=== PATIENT | male | born 1990 | race Caucasian/White ===

== ENCOUNTER 2018-05-09 22:53 | Emergency (ER) | payer SELFPAY ==
--- NOTE | 2018-05-10 01:06 | ED ---
General Adult HPI - General Chief complaint: Skin/Abscess/Foreign Body Stated complaint: poss staph infection Source: patient Mode of arrival: ambulatory Limitations: no limitations - History of Present Illness Initial comments: Dictation was produced using [employer] dictation software. please excuse any grammatical, word or spelling errors. Chief Complaint: 28-year-old male presents with rash to his finger and forearm. History of Present Illness: Before meals was sent here from work for rash. Patient was told that his rash might represent staph infection. He was sent home from work told that he can come back to work until he has a work note. Patient states that his daughter was suffering from a staph infection. He has been treating and applying the medications to his daughter while swelling gloves. Patient denies any similar symptoms. Did have a small bullous rash to his forearm. He works as a fitter/welder and states that he gets these types of lesions commonly after he gets burn frequently. The ROS documented in this emergency department record has been reviewed and confirmed by me. Those systems with pertinent positive or negative responses have been documented in the HPI. All other systems are other negative and/or noncontributory. - Related Data Previous Rx's Medication Instructions Recorded Htotizyp-Opdlvrgams-Fbvs Oint 1 applic TOPICAL DAILY #250 05/10/18 [Triple Antibiotic Ointment] oint...g. Allergies Allergy/AdvReac Type Severity Reaction Status Date / Time codeine Allergy Anaphylaxis Verified 05/09/18 23:51 Review of Systems ROS Statement: Those systems with pertinent positive or pertinent negative responses have been documented in the HPI. ROS Other: All systems not noted in ROS Statement are negative. Past Medical History Past Medical History: No Reported History Additional Past Medical History / Comment(s): back pain, depression History of Any Multi-Drug Resistant Organisms: None Reported Past Surgical History: Tonsillectomy Past Psychological History: Anxiety, Depression Smoking Status: Current every day smoker Past Alcohol Use History: None Reported Past Drug Use History: Marijuana General Exam - General Exam Comments Initial Comments: PHYSICAL EXAM: General Impression: Alert and oriented x3, not in acute distress HEENT: Normocephalic atraumatic, extra-ocular movements intact, pupils equal and reactive to light bilaterally, mucous membranes moist. Cardiovascular: Heart regular rate and rhythm, S1&S2 audible, no murmurs, rubs or gallops Chest: Lungs clear to auscultation bilaterally, no rhonchi, no wheeze, no rales Abdomen: Bowel sounds present, abdomen soft, non-tender, non-distended, no organomegaly Musculoskeletal: Pulses present and equal in all extremities, no peripheral edema Motor: Power 5/5 bilaterally, no focal deficits noted Neurological: CN II-XII grossly intact, no focal motor or sensory deficits noted Skin: Small punctate 1 mm blister to the distal right forearm any surrounding erythema. Psych: Normal affect and mood Limitations: no limitations Course Vital Signs 05/09/18 23:50 Temperature 98.5 F Pulse Rate 85 Respiratory 18 Rate Blood Pressure 120/74 O2 Sat by Pulse 98 Oximetry Medical Decision Making - Medical Decision Making ED course: 12-vvr-rhlf-old male presents with request for work note and rash evaluation. Signs upon arrival are within acceptable limits. Patient's clinical presentation consistent with staph or any other bacterial type of rash. Patient given a work note to clear him back for work. He is given prescription for triple ointment antibiotic to place should he develop any redness to his skin. He is advised follow up with primary care physician upon discharge. Disposition Clinical Impression: Rash Disposition: HOME SELF-CARE Condition: Good Instructions: Acute Rash (ED) Prescriptions: Tscrepiw-Rckyfcgnwp-Fntw Oint [Triple Antibiotic Ointment] 1 applic TOPICAL DAILY #250 oint...g. Is patient prescribed a controlled substance at d/c from ED?: No Referrals: None,Stated [Primary Care Provider] - 1-2 days Time of Disposition: 01:06
[2018-05-10 01:19] VITALS: BP 126/63; PULSE 82; RESP 16; TEMP 98.3
== END 2018-05-10 01:23 | disposition home or self-care (01) ==
LOC: EC 22:53
DX: R21 Rash and other nonspecific skin eruption (principal); F17.200 Nicotine dependence, unspecified, uncomplicated; Z88.5 Allergy status to narcotic agent
CPT/HCPCS: 99282

== ENCOUNTER 2018-06-07 17:49 | Emergency (ER) | payer OTHER ==
[2018-06-07 19:11] VITALS: RESP 18
[2018-06-07 19:45] LABS: Appearance,Urine Clear (Clear); Bilirubin,Urine Negative (Negative); Blood,Urine Negative (Negative); Color,Urine Light Yellow; Glucose,Urine (UA) Negative (Negative); Ketones,Urine Negative (Negative); Leukocyte Esterase,Urine Negative (Negative); Nitrite,Urine Negative (Negative); Protein,Urine Negative (Negative); Specific Gravity,Urine 1.006 (1.001-1.035); Urobilinogen,Urine <2.0 mg/dL (<2.0)
[2018-06-07 19:48] LABS: Basophils # (A) 0.1 k/uL (0-0.2); Basophils % (A) 1 %; Eosinophils # (A) 0.3 k/uL (0-0.7); Eosinophils % (A) 3 %; HCT 42.8 % (39.0-53.0); HGB 14.5 gm/dL (13.0-17.5); Lymphocytes # (A) 2.6 k/uL (1.0-4.8); Lymphocytes % (A) 31 %; MCH 29.4 pg (25.0-35.0); MCHC 33.9 g/dL (31.0-37.0); MCV 86.7 fL (80.0-100.0); Mean Platelet Volume 7.1; Monocytes # (A) 0.5 k/uL (0-1.0); Monocytes % (A) 5 %; Neutrophils # (A) 4.9 k/uL (1.3-7.7); Neutrophils % (A) 58 %; Platelet Count 232 k/uL (150-450); RBC 4.94 m/uL (4.30-5.90); RDW 12.3 % (11.5-15.5); WBC 8.3 k/uL (3.8-10.6)
[2018-06-07 19:53] LABS: ALT 33 U/L (21-72); AST 26 U/L (17-59); Albumin 4.7 g/dL (3.5-5.0); Alkaline Phosphatase 67 U/L (38-126); Amylase 36 U/L (30-110); Anion Gap 9 mmol/L; Blood Urea Nitrogen 11 mg/dL (9-20); Calcium 9.7 mg/dL (8.4-10.2); Carbon Dioxide 26 mmol/L (22-30); Chloride 108 mmol/L (98-107); Glucose 88 mg/dL (74-99); Lipase 63 U/L (23-300); Potassium 4.6 mmol/L (3.5-5.1); Sodium 143 mmol/L (137-145); Total Bilirubin 0.6 mg/dL (0.2-1.3); Total Protein 7.2 g/dL (6.3-8.2)
[2018-06-07] MEDS ORDERED: KETOROLAC 30 MG/ML 1 ML VIAL IVP STA (20:08)
--- NOTE | 2018-06-07 20:18 | ED ---
General Adult HPI - General Chief complaint: Abdominal Pain Stated complaint: flank pain Time Seen by Provider: 06/07/18 19:51 Source: patient, RN notes reviewed Mode of arrival: ambulatory Limitations: no limitations - History of Present Illness Initial comments: Patient is a pleasant 28-year-old male presenting to the emergency department with concerns for left flank pain. Symptoms have been occurring for a couple of days. Patient is concerned that he may have gotten dehydrated a day or 2 ago. Patient has not noticed any hematuria. He states the urine has looked somewhat dark. He states there is mild discomfort with urination. Flank discomfort is positional. Discomfort is mostly left CVA region but does extend somewhat towards the abdomen. No fevers. No vomiting. No history of similar symptoms previously. - Related Data Home Medications Medication Instructions Recorded Confirmed Acetaminophen [Tylenol Arthritis] 650 mg PO Q8H PRN 06/07/18 06/07/18 Previous Rx's Medication Instructions Recorded Cyclobenzaprine [Flexeril] 10 mg PO TID PRN #12 tablet 06/07/18 Allergies Allergy/AdvReac Type Severity Reaction Status Date / Time codeine Allergy Anaphylaxis Verified 06/07/18 19:39 Review of Systems ROS Statement: Those systems with pertinent positive or pertinent negative responses have been documented in the HPI. ROS Other: All systems not noted in ROS Statement are negative. Constitutional: Denies: fever Eyes: Denies: eye pain ENT: Denies: ear pain Respiratory: Denies: cough Cardiovascular: Denies: chest pain Endocrine: Denies: fatigue Gastrointestinal: Reports: abdominal pain Genitourinary: Reports: dysuria. Denies: hematuria Musculoskeletal: Reports: back pain (Left flank) Skin: Denies: rash Neurological: Denies: weakness Past Medical History Past Medical History: No Reported History Additional Past Medical History / Comment(s): back pain, depression, History of Any Multi-Drug Resistant Organisms: None Reported Past Surgical History: Tonsillectomy Past Psychological History: Anxiety, Bipolar, Depression Smoking Status: Current every day smoker Past Alcohol Use History: None Reported Past Drug Use History: Marijuana General Exam Limitations: no limitations General appearance: alert, in no apparent distress Head exam: Present: atraumatic Eye exam: Present: normal appearance ENT exam: Present: normal oropharynx Neck exam: Present: normal inspection Respiratory exam: Present: normal lung sounds bilaterally Cardiovascular Exam: Present: regular rate, normal rhythm Expanded Peripheral pulses: 2+: Posterior Tibialis (R), Posterior Tibialis (L), Dorsalis Pedis (R), Dorsalis Pedis (L) GI/Abdominal exam: Present: soft, tenderness (Mild tenderness left flank), normal bowel sounds. Absent: distended, guarding, rebound, rigid, pulsatile mass Extremities exam: Present: normal inspection. Absent: pedal edema, calf tenderness Back exam: Present: CVA tenderness (L) (Mild discomfort left CVA) Neurological exam: Present: alert Psychiatric exam: Present: normal affect, normal mood Skin exam: Present: normal color Course Vital Signs 06/07/18 19:07 Temperature 98.3 F Pulse Rate 98 Respiratory 18 Rate Blood Pressure 120/75 O2 Sat by Pulse 98 Oximetry Medical Decision Making - Medical Decision Making Patient reevaluated and resting comfortably in bed. Patient is updated on results. - Lab Data Result diagrams: 06/07/18 19:35 06/07/18 19:35 Lab Results 06/07/18 06/07/18 06/07/18 Range/Units 19:35 19:35 19:35 WBC 8.3 (3.8-10.6) k/uL RBC 4.94 (4.30-5.90) m/uL Hgb 14.5 (13.0-17.5) gm/dL Hct 42.8 (39.0-53.0) % MCV 86.7 (80.0-100.0) fL MCH 29.4 (25.0-35.0) pg MCHC 33.9 (31.0-37.0) g/dL RDW 12.3 (11.5-15.5) % Plt Count 232 (150-450) k/uL Neutrophils % 58 % Lymphocytes % 31 % Monocytes % 5 % Eosinophils % 3 % Basophils % 1 % Neutrophils # 4.9 (1.3-7.7) k/uL Lymphocytes # 2.6 (1.0-4.8) k/uL Monocytes # 0.5 (0-1.0) k/uL Eosinophils # 0.3 (0-0.7) k/uL Basophils # 0.1 (0-0.2) k/uL Sodium 143 (137-145) mmol/L Potassium 4.6 (3.5-5.1) mmol/L Chloride 108 H (98-107) mmol/L Carbon Dioxide 26 (22-30) mmol/L Anion Gap 9 mmol/L BUN 11 (9-20) mg/dL Creatinine 0.81 (0.66-1.25) mg/dL Est GFR (CKD-EPI)AfAm >90 (>60 ml/min/1.73 sqM) Est GFR (CKD-EPI)NonAf >90 (>60 ml/min/1.73 sqM) Glucose 88 (74-99) mg/dL Calcium 9.7 (8.4-10.2) mg/dL Total Bilirubin 0.6 (0.2-1.3) mg/dL AST 26 (17-59) U/L ALT 33 (21-72) U/L Alkaline Phosphatase 67 (38-126) U/L Total Protein 7.2 (6.3-8.2) g/dL Albumin 4.7 (3.5-5.0) g/dL Amylase 36 (30-110) U/L Lipase 63 (23-300) U/L Urine Color Light Yellow Urine Appearance Clear (Clear) Urine pH 6.0 (5.0-8.0) Ur Specific [place] 1.006 (1.001-1.035) Urine Protein Negative (Negative) Urine Glucose (UA) Negative (Negative) Urine Ketones Negative (Negative) Urine Blood Negative (Negative) Urine Nitrite Negative (Negative) Urine Bilirubin Negative (Negative) Urine Urobilinogen <2.0 (<2.0) mg/dL Ur Leukocyte Esterase Negative (Negative) - Radiology Data Radiology results: report reviewed (Computed tomography scan of the abdomen pelvis shows no acute process.), image reviewed (KUB shows nonacute abdomen) Disposition Clinical Impression: Back pain Disposition: HOME SELF-CARE Condition: Stable Instructions: Flank Pain (ED), Back Pain (ED) Additional Instructions: Teuj-spn-lbbjzyv ibuprofen as needed. Please follow-up with primary care physician in the next day or 2 for recheck. Have primary care physician check urine culture results. Return for fevers, increase in pain, worsening or changing symptoms or other concerns. Prescriptions: Cyclobenzaprine [Flexeril] 10 mg PO TID PRN #12 tablet PRN Reason: Pain Is patient prescribed a controlled substance at d/c from ED?: No Referrals: Дмитрий Moirllo MD [STAFF PHYSICIAN] - 1-2 days Time of Disposition: 22:04
--- NOTE | 2018-06-07 20:57 | CT ---
EXAMINATION TYPE: CT abdomen pelvis wo con DATE OF EXAM: 06/07/2018 COMPARISON: 05/23/2011 HISTORY: Left side flank pain. CT DLP: 361.3 mGycm Automated exposure control for dose reduction was used. TECHNIQUE: Helical acquisition of images was performed from the lung bases through the pelvis. FINDINGS: Lung bases are clear. There is no pleural effusion. Heart size is normal. Liver spleen pancreas gallbladder appear normal. Bile ducts are not dilated. There is no adrenal mass . Kidneys have normal size and contour. There is no hydronephrosis. Bladder distends smoothly. There is no retroperitoneal adenopathy. There are a few abdominal para-aortic lymph nodes that measure up t o 1 cm. There is no ascites. There is no intestinal wall thickening. There are no dilated loops. Bladder dist ends smoothly. There is no evidence of a pelvic mass. Appendix appears normal. The lumbar spine is in tact. Disc spaces are normal. There is no evidence of free air. There is no free fluid. IMPRESSION: NORMAL CT SCAN OF THE ABDOMEN AND PELVIS. NORMAL APPENDIX. NO RENAL STONE OR OBSTRUCTION.
--- NOTE | 2018-06-07 21:26 | XR ---
EXAMINATION TYPE: XR KUB DATE OF EXAM: 06/07/2018 COMPARISON: NONE HISTORY: Flank pain TECHNIQUE: 2 views FINDINGS: Bowel gas pattern is normal. There is no sign of intestinal obstruction or pneumoperitoneum . Fecal pattern is normal. There are no pathologic calcifications over the kidneys. IMPRESSION: Nonacute abdomen.
[2018-06-07 22:21] VITALS: BP 135/62; PULSE 72; TEMP 98
== END 2018-06-07 22:21 | disposition home or self-care (01) ==
LOC: EC 17:49
DX: M54.9 Dorsalgia, unspecified (principal); R10.9 Unspecified abdominal pain; F17.200 Nicotine dependence, unspecified, uncomplicated; Z88.5 Allergy status to narcotic agent
CPT/HCPCS: 36415; 74018; 74176; 80053; 81003; 82150; 83690; 85025; 87086; 96374; 99284

== ENCOUNTER 2018-07-06 19:06 | Emergency (ER) | payer OTHER ==
[2018-07-06 19:26] VITALS: BP 121/75; PULSE 78; RESP 16; TEMP 98.3
[2018-07-06] MEDS ORDERED: PROPARACAINE 0.5% OPHTH DROPS 15 ML BTL LEFT EYE STA (19:36)
--- NOTE | 2018-07-06 19:39 | ED ---
General Adult HPI - General Chief complaint: Eye Problems Stated complaint: poss fb in left eye Time Seen by Provider: 07/06/18 19:31 Source: patient, RN notes reviewed Mode of arrival: ambulatory Limitations: no limitations - History of Present Illness Initial comments: Patient's a 28-year-old male presents to emergency room today with a chief complaint of foreign body sensation to the left eye. Patient does admit that he was outside working in the garage when he feels like something might have fallen into his eye. He states she's had some irritation on the lateral aspect. Patient states unsure of his tetanus status. He denies any other complaints. Patient denies any recent fever, chills, shortness of breath, chest pain, back pain, abdominal pain, nausea or vomiting, numbness or tingling, headaches or visual changes, or any other complaints. - Related Data Previous Rx's Medication Instructions Recorded Tobramycin 0.3% Ophth Soln [Tobrex 1 - 2 drop BOTH EYES QID 7 Days ml 07/06/18 0.3% Ophth Soln] Allergies Allergy/AdvReac Type Severity Reaction Status Date / Time codeine Allergy Rash/Hives Verified 07/06/18 19:37 Review of Systems ROS Statement: Those systems with pertinent positive or pertinent negative responses have been documented in the HPI. ROS Other: All systems not noted in ROS Statement are negative. Past Medical History Past Medical History: No Reported History Additional Past Medical History / Comment(s): back pain, depression, History of Any Multi-Drug Resistant Organisms: None Reported Past Surgical History: Tonsillectomy Past Psychological History: Anxiety, Bipolar, Depression Smoking Status: Current every day smoker Past Alcohol Use History: None Reported Past Drug Use History: Marijuana General Exam - General Exam Comments Initial Comments: General: The patient is awake and alert, in no distress, and does not appear acutely ill. Eye: Pupils are equal, round and reactive to light. Extra-ocular movements are intact. No nystagmus. There is normal conjunctiva bilaterally. No signs of icterus. Ears, nose, mouth and throat: There are moist mucous membranes and no oral lesions. Neck: The neck is supple, there is no tenderness or JVD. Musculoskeletal: Normal ROM, no tenderness. Sensation intact. Neurological: A&O x 3. CN II-XII intact, There are no obvious motor or sensory deficits. Coordination appears grossly intact. Speech is normal. Skin: Skin is warm and dry and no rashes or lesions are noted. Psychiatric: Cooperative, appropriate mood & affect, normal judgment. Limitations: no limitations Course Vital Signs 07/06/18 19:23 Temperature 98.3 F Pulse Rate 78 Respiratory 16 Rate Blood Pressure 121/75 O2 Sat by Pulse 100 Oximetry Medical Decision Making - Medical Decision Making Patient's left eye was stained with fluorescein which did reveal a foreign body at the 10 o'clock position. Her chemistries used to anesthetize the eye which didn't relieve his symptoms. Lids were inverted no other foreign bodies seen. Yared brush used to perform body and small rust ring. Patient tolerated procedure well. Patient will be started on antibiotic drops advised following up over the next 2 days with e learning manager if symptoms have not completely resolved. Tetanus will be updated. Disposition Clinical Impression: Corneal foreign body Disposition: HOME SELF-CARE Condition: Good Instructions: Eye Foreign Body (ED) Additional Instructions: Please use antibiotic drops as prescribed follow-up with e learning manager if symptoms have not completely resolved in 2 days. Please return to emergency room if any symptoms increase or worsen. Prescriptions: Tobramycin 0.3% Ophth Soln [Tobrex 0.3% Ophth Soln] 1 - 2 drop BOTH EYES QID 7 Days ml Is patient prescribed a controlled substance at d/c from ED?: No Referrals: None,Stated [Primary Care Provider] - 1-2 days Rhys Chi MD [STAFF PHYSICIAN] - 1-2 days Time of Disposition: 20:01
[2018-07-06] MEDS ORDERED: DIPH,PERTUS(ACELL)TETVAC-LF 0.5 ML VIAL IM ONE (20:00)
== END 2018-07-06 20:35 | disposition home or self-care (01) ==
LOC: EC 19:06
DX: T15.02XA Foreign body in cornea, left eye, initial encounter (principal); F17.200 Nicotine dependence, unspecified, uncomplicated; Z23 Encounter for immunization; Z88.5 Allergy status to narcotic agent; Y92.015 Private garage of single-family (private) house as the place of occurrence of the external cause; Y93.89 Activity, other specified
CPT/HCPCS: 90471; 90715; 99283

== ENCOUNTER 2018-09-06 16:51 | Emergency (ER) | payer OTHER ==
[2018-09-06 16:57] VITALS: TEMP 97.4
[2018-09-06] MEDS ORDERED: KETOROLAC 60 MG/2 ML VIAL IM STA (17:17)
--- NOTE | 2018-09-06 17:20 | ED ---
General Adult HPI - General Chief complaint: Extremity Injury, Lower Stated complaint: Ankle Injury Time Seen by Provider: 09/06/18 17:08 Source: patient, RN notes reviewed Mode of arrival: ambulatory Limitations: no limitations - History of Present Illness Initial comments: Patient is a 28-year-old male who presents the emergency department with complaints of left foot pain that started 2 days ago when he misstepped/missed a couple steps on the staircase and landed on his left heel. Patient denies any recent head injury, loss of consciousness, fever, chills, shortness of breath, chest pain, back pain, abdominal pain, nausea or vomiting, numbness, tingling, headaches or visual changes, or any other complaints. - Related Data Previous Rx's Medication Instructions Recorded Tobramycin 0.3% Ophth Soln [Tobrex 1 - 2 drop BOTH EYES QID 7 Days ml 07/06/18 0.3% Ophth Soln] Allergies Allergy/AdvReac Type Severity Reaction Status Date / Time codeine Allergy Rash/Hives Verified 09/06/18 16:57 Review of Systems ROS Statement: Those systems with pertinent positive or pertinent negative responses have been documented in the HPI. ROS Other: All systems not noted in ROS Statement are negative. Past Medical History Past Medical History: No Reported History Additional Past Medical History / Comment(s): back pain, depression, History of Any Multi-Drug Resistant Organisms: None Reported Past Surgical History: Tonsillectomy Past Psychological History: Anxiety, Bipolar, Depression Smoking Status: Current every day smoker Past Alcohol Use History: None Reported Past Drug Use History: Marijuana General Exam Limitations: no limitations General appearance: alert, in no apparent distress Head exam: Present: atraumatic, normocephalic Eye exam: Present: normal appearance Respiratory exam: Present: normal lung sounds bilaterally Cardiovascular Exam: Present: regular rate, normal rhythm Extremities exam: Present: full ROM, normal capillary refill, other (DP and PT pulses palpable and strong.) Neurological exam: Present: alert, oriented X3 Psychiatric exam: Present: normal affect, normal mood Course Vital Signs 09/06/18 16:54 Temperature 97.4 F L Pulse Rate 83 Respiratory 20 Rate Blood Pressure 119/76 O2 Sat by Pulse 100 Oximetry Medical Decision Making - Medical Decision Making Left foot and calcaneus x-rays are negative. Patient was offered a splint, boot and BIRGIT wrap and refused all options. He requested a work note for today, which I provided. Case discussed in detail with attending physician Dr. aDvis. Disposition Clinical Impression: Contusion, foot Disposition: HOME SELF-CARE Condition: Good Instructions: Foot Contusion (ED) Additional Instructions: Follow-up with your PCP in 2 days. Return to the emergency department if your symptoms worsen or any other concerns. Is patient prescribed a controlled substance at d/c from ED?: No Referrals: None,Stated [Primary Care Provider] - 1-2 days Oscar Araiza MD [REFERRING] - 1-2 days Time of Disposition: 20:35
--- NOTE | 2018-09-06 19:38 | XR ---
EXAMINATION TYPE: XR foot complete LT DATE OF EXAM: 09/06/2018 COMPARISON: 02/14/2015 HISTORY: Foot pain TECHNIQUE: 3 views FINDINGS: I see no fracture nor dislocation. Metatarsals are intact. Joint spaces are fairly normal. There is deformity of the tip of the second toe that could be due to old trauma. IMPRESSION: No acute abnormality of the left foot.
--- NOTE | 2018-09-06 19:42 | XR ---
EXAMINATION TYPE: XR calcaneus 2V LT DATE OF EXAM: 09/06/2018 COMPARISON: NONE HISTORY: Pain TECHNIQUE: 2 views FINDINGS: Calcaneus appears intact. I see no fracture nor dislocation. Subtalar joint appears normal. IMPRESSION: Negative left calcaneus exam.
[2018-09-06 20:41] VITALS: BP 116/67; PULSE 76; RESP 18
== END 2018-09-06 20:39 | disposition home or self-care (01) ==
LOC: EC 16:51
DX: S90.32XA Contusion of left foot, initial encounter (principal); F17.200 Nicotine dependence, unspecified, uncomplicated; Z88.5 Allergy status to narcotic agent; W22.8XXA Striking against or struck by other objects, initial encounter; Y92.009 Unspecified place in unspecified non-institutional (private) residence as the place of occurrence of the external cause
CPT/HCPCS: 73630; 73650; 99283; 96372; J1885

== ENCOUNTER 2019-10-07 18:40 | Emergency (ER) | payer OTHER ==
--- NOTE | 2019-10-07 19:21 | ED ---
General Adult HPI - General Chief complaint: Urogenital Stated complaint: Body aches Time Seen by Provider: 10/07/19 18:54 Source: patient Mode of arrival: ambulatory Limitations: no limitations - History of Present Illness Initial comments: Patient presents to the ED complaining of having malaise and diffuse myalgias for the past week or so, and urinary urgency and mild dysuria for the past 5 days or so. Patient also states that he has had generalized lower abdominal and lower back pain for the past 5 days or so. Patient denies trauma or injury, fever or chills, headache, sore throat, cough or cold symptoms, chest pain, dyspnea, dizziness, upper abdominal pain, nausea or vomiting, diarrhea or constipation, bloody or melanotic stool, hematuria, urinary frequency, incontinence or urinary retention, penile or testicular pain or swelling, penile discharge, leg pain/numbness/weakness, or any other symptoms or complaints. - Related Data Previous Rx's Medication Instructions Recorded Tobramycin 0.3% Ophth Soln [Tobrex 1 - 2 drop BOTH EYES QID 7 Days ml 07/06/18 0.3% Ophth Soln] Allergies Allergy/AdvReac Type Severity Reaction Status Date / Time codeine Allergy Rash/Hives Verified 10/07/19 18:52 Review of Systems ROS Statement: Those systems with pertinent positive or pertinent negative responses have been documented in the HPI. ROS Other: All systems not noted in ROS Statement are negative. Past Medical History Past Medical History: No Reported History Additional Past Medical History / Comment(s): back pain, depression, History of Any Multi-Drug Resistant Organisms: None Reported Past Surgical History: Tonsillectomy Past Psychological History: Anxiety, Bipolar, Depression Smoking Status: Current every day smoker Past Alcohol Use History: Occasional Past Drug Use History: Marijuana General Exam Limitations: no limitations General appearance: alert, in no apparent distress Head exam: Present: atraumatic, normocephalic Eye exam: Present: normal appearance, EOMI ENT exam: Present: normal oropharynx, mucous membranes moist Neck exam: Present: other (Trachea is in midline). Absent: tenderness, meningismus Respiratory exam: Present: normal lung sounds bilaterally. Absent: respiratory distress, wheezes, rales, rhonchi Cardiovascular Exam: Present: regular rate, normal rhythm, normal heart sounds, other (Normal radial pulses bilaterally) GI/Abdominal exam: Present: soft, other (Mild diffuse lower abdominal tend erness). Absent: distended, guarding, rebound Extremities exam: Present: full ROM. Absent: tenderness, pedal edema, calf tenderness Back exam: Present: normal inspection, full ROM. Absent: tenderness, CVA tenderness (R), CVA tenderness (L) Neurological exam: Present: alert, oriented X3. Absent: motor sensory deficit Psychiatric exam: Present: normal affect, normal mood Skin exam: Present: warm, dry, intact Course Vital Signs 10/07/19 10/07/19 10/07/19 18:50 19:33 21:00 Temperature 97.5 F L 97.8 F 97.4 F L Pulse Rate 91 71 67 Respiratory 16 18 18 Rate Blood Pressure 125/82 125/69 120/64 O2 Sat by Pulse 100 98 100 Oximetry Medical Decision Making - Medical Decision Making Patient denies development of any new pain or symptoms while in the ED. Patient's abdomen is soft and without any surgical signs on examination. Patient is afebrile and without leukocytosis. Patient's labs and CT abdomen/pelvis are fairly unremarkable. I do not suspect that the patient's symptoms are from an emergent medical or surgical condition. Patient is aware of his test results and he feels comfortable going home at this time. Patient was counseled about abdominal pain and lumbar back pain. Patient was clearly explained return and follow-up instructions, and he was instructed to return to the ED should he develop new or worsening pain or symptoms. Patient was also instructed to follow up closely with his primary care provider. Patient feels comfortable with this plan. Patient's urine chlamydia and gonorrhea studies are still pending at this time. - Lab Data Result diagrams: 10/07/19 20:00 10/07/19 20:00 Lab Results 10/07/19 10/07/19 10/07/19 Range/Units 20:00 20:00 20:00 WBC 9.1 (3.8-10.6) k/uL RBC 5.15 (4.30-5.90) m/uL Hgb 15.3 (13.0-17.5) gm/dL Hct 44.9 (39.0-53.0) % MCV 87.0 (80.0-100.0) fL MCH 29.7 (25.0-35.0) pg MCHC 34.2 (31.0-37.0) g/dL RDW 12.1 (11.5-15.5) % Plt Count 222 (150-450) k/uL Neutrophils % 66 % Lymphocytes % 25 % Monocytes % 4 % Eosinophils % 3 % Basophils % 1 % Neutrophils # 6.0 (1.3-7.7) k/uL Lymphocytes # 2.3 (1.0-4.8) k/uL Monocytes # 0.3 (0-1.0) k/uL Eosinophils # 0.3 (0-0.7) k/uL Basophils # 0.1 (0-0.2) k/uL Sodium 142 (137-145) mmol/L Potassium 4.3 (3.5-5.1) mmol/L Chloride 108 H (98-107) mmol/L Carbon Dioxide 31 H (22-30) mmol/L Anion Gap 3 mmol/L BUN 13 (9-20) mg/dL Creatinine 0.87 (0.66-1.25) mg/dL Est GFR (CKD-EPI)AfAm >90 (>60 ml/min/1.73 sqM) Est GFR (CKD-EPI)NonAf >90 (>60 ml/min/1.73 sqM) Glucose 83 (74-99) mg/dL Calcium 9.7 (8.4-10.2) mg/dL Total Bilirubin 0.8 (0.2-1.3) mg/dL AST 25 (17-59) U/L ALT 14 (4-49) U/L Alkaline Phosphatase 72 (38-126) U/L Total Protein 7.1 (6.3-8.2) g/dL Albumin 4.4 (3.5-5.0) g/dL Lipase 76 (23-300) U/L Urine Color Yellow Urine Appearance Clear (Clear) Urine pH 6.0 (5.0-8.0) Ur Specific Adell 1.008 (1.001-1.035) Urine Protein Negative (Negative) Urine Glucose (UA) Negative (Negative) Urine Ketones Negative (Negative) Urine Blood Negative (Negative) Urine Nitrite Negative (Negative) Urine Bilirubin Negative (Negative) Urine Urobilinogen <2.0 (<2.0) mg/dL Ur Leukocyte Esterase Negative (Negative) - Radiology Data Radiology results: report reviewed (CT abdomen and pelvis is negative) Disposition Clinical Impression: Abdominal pain, Lumbar back pain, Myalgia, Malaise Disposition: HOME SELF-CARE Condition: Stable Instructions (If sedation given, give patient instructions): Abdominal Pain (ED), Back Pain (ED) Additional Instructions: Return to the ER immediately should you develop new or worsening pain, trouble controlling your bladder or bowels, leg numbness or weakness, a fever, chest pain, shortness of breath, vomiting, feeling dizzy or faint, or new or worsening symptoms. Follow up closely with your primary care provider. Is patient prescribed a controlled substance at d/c from ED?: No Referrals: None,Stated [Primary Care Provider] - 1-2 days Time of Disposition: 21:23
[2019-10-07 19:34] VITALS: RESP 18
[2019-10-07 20:13] LABS: Basophils # (A) 0.1 k/uL (0-0.2); Basophils % (A) 1 %; Eosinophils # (A) 0.3 k/uL (0-0.7); Eosinophils % (A) 3 %; HCT 44.9 % (39.0-53.0); HGB 15.3 gm/dL (13.0-17.5); Lymphocytes # (A) 2.3 k/uL (1.0-4.8); Lymphocytes % (A) 25 %; MCH 29.7 pg (25.0-35.0); MCHC 34.2 g/dL (31.0-37.0); Mean Platelet Volume 8.5; Monocytes # (A) 0.3 k/uL (0-1.0); Monocytes % (A) 4 %; Neutrophils % (A) 66 %; Platelet Count 222 k/uL (150-450); RBC 5.15 m/uL (4.30-5.90); RDW 12.1 % (11.5-15.5); WBC 9.1 k/uL (3.8-10.6)
[2019-10-07 20:14] LABS: Appearance,Urine Clear (Clear); Bilirubin,Urine Negative (Negative); Blood,Urine Negative (Negative); Color,Urine Yellow; Glucose,Urine (UA) Negative (Negative); Ketones,Urine Negative (Negative); Leukocyte Esterase,Urine Negative (Negative); Nitrite,Urine Negative (Negative); Protein,Urine Negative (Negative); Specific Gravity,Urine 1.008 (1.001-1.035); Urobilinogen,Urine <2.0 mg/dL (<2.0)
[2019-10-07 20:22] LABS: ALT 14 U/L (4-49); AST 25 U/L (17-59); African American GFR (CKD) >90 (>60 ml/min/1.73 sqM); Albumin 4.4 g/dL (3.5-5.0); Alkaline Phosphatase 72 U/L (38-126); Anion Gap 3 mmol/L; Blood Urea Nitrogen 13 mg/dL (9-20); Calcium 9.7 mg/dL (8.4-10.2); Carbon Dioxide 31 mmol/L (22-30); Chloride 108 mmol/L (98-107); Glucose 83 mg/dL (74-99); Non-African American GFR(CKD) >90 (>60 ml/min/1.73 sqM); Potassium 4.3 mmol/L (3.5-5.1); Sodium 142 mmol/L (137-145); Total Bilirubin 0.8 mg/dL (0.2-1.3); Total Protein 7.1 g/dL (6.3-8.2)
[2019-10-07 21:10] VITALS: BP 120/64; PULSE 67; TEMP 97.4
--- NOTE | 2019-10-07 21:15 | CT ---
EXAMINATION TYPE: CT abdomen pelvis wo con DATE OF EXAM: 10/07/2019 COMPARISON: 06/07/2018 INDICATION: Flank pain. difficulty urinating DLP: 564.3 mGycm, Automated exposure control for dose reduction was used. CONTRAST: 0 mL of Isovue 300. Study performed without Oral Contrast TECHNIQUE: Axial images were obtained from above the diaphragm to the pubic rami in the axial plane a t 5 mm thick sections. Reconstructed images are reviewed on the computer in the coronal plane. FINDINGS: Limited CT sections are obtained the lung bases. The lung bases are clear. CT ABDOMEN: Liver: Normal Spleen: Normal Pancreas: Normal Adrenal glands: The adrenal glands are normal. Gallbladder: Normal Kidneys: No masses are evident. No hydronephrosis is present. No cysts are present. No renal stone s are identified. No hydroureter is evident. Aorta: Normal Inferior vena cava: Normal. CT PELVIS: Loops of bowel within the abdomen and pelvis are normal. Studies without oral contrast limiting b owel evaluation. Appendix: Not visualized. No suspicious inflammatory changes or dilated tubular structures are eviden t. Urinary bladder: Normal. No calcifications are evident. No wall thickening is evident. No suspicious overdistention is identified. Genitourinary structures: Prostate appears within normal limits. Osseous structures: No suspicious lytic or sclerotic lesions. IMPRESSIONS: 1. Normal noncontrast CT abdomen and pelvis
[2019-10-09 12:30] LABS: C. trachomatis,PCR Negative (Neg,Equiv); Chlamydia trachomatis Source Urine
[2019-10-09 12:31] LABS: N. gonorrhoeae,PCR Negative (Neg,Equiv); Neisseria Source Urine
== END 2019-10-07 21:42 | disposition home or self-care (01) ==
LOC: EC 18:40
DX: M79.10 Myalgia, unspecified site (principal); R53.81 Other malaise; R10.84 Generalized abdominal pain; M54.5 Low back pain; R30.0 Dysuria; R39.15 Urgency of urination; F17.200 Nicotine dependence, unspecified, uncomplicated; Z88.5 Allergy status to narcotic agent
CPT/HCPCS: 36415; 74176; 80053; 81003; 83690; 85025; 87491; 87591; 99284

== ENCOUNTER 2020-07-05 07:56 | Emergency (ER) | payer OTHER ==
[2020-07-05 08:03] VITALS: BP 117/77; PULSE 102; RESP 18; TEMP 97.8
[2020-07-05] MEDS ORDERED: KETOROLAC 15 MG/ML 1 ML VIAL IM STA (08:09)
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
== END 2020-07-05 09:19 | disposition home or self-care (01) ==
LOC: EC 07:56
DX: S43.101A Unspecified dislocation of right acromioclavicular joint, initial encounter (principal); S50.312A Abrasion of left elbow, initial encounter; S50.311A Abrasion of right elbow, initial encounter; S80.212A Abrasion, left knee, initial encounter; S80.211A Abrasion, right knee, initial encounter; Z88.5 Allergy status to narcotic agent; F17.200 Nicotine dependence, unspecified, uncomplicated; Y04.2XXA Assault by strike against or bumped into by another person, initial encounter
CPT/HCPCS: 73030; 73562; 99284; 96372; J1885

== ENCOUNTER → 2020-08-29 | Outpatient (CLI) | payer OTHER ==
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
== END | disposition home or self-care (01) ==
LOC: RADCTMAIN 09:14
PROVIDERS: ATTEND Orthopaedic Surgery
DX: M79.89 Other specified soft tissue disorders (principal); M89.8X6 Other specified disorders of bone, lower leg

== ENCOUNTER 2020-09-28 06:38 | Emergency (ER) | payer OTHER ==
[2020-09-28] MEDS ORDERED: LIDOCAINE 1% INJ 10MG/ML (20 ML MDV) SQ ONE (06:46)
[2020-09-28 06:48] VITALS: BP 136/91; PULSE 109; RESP 18; TEMP 97.5
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
[2020-09-28 07:19] LABS: Basophils # (A) 0.1 k/uL (0-0.2); Basophils % (A) 1 %; Eosinophils # (A) 0.2 k/uL (0-0.7); Eosinophils % (A) 1 %; HCT 44.3 % (39.0-53.0); HGB 15.7 gm/dL (13.0-17.5); Lymphocytes # (A) 1.6 k/uL (1.0-4.8); Lymphocytes % (A) 10 %; MCH 30.6 pg (25.0-35.0); MCHC 35.4 g/dL (31.0-37.0); MCV 86.5 fL (80.0-100.0); Mean Platelet Volume 7.5; Monocytes # (A) 0.8 k/uL (0-1.0); Monocytes % (A) 5 %; Neutrophils # (A) 13.1 k/uL (1.3-7.7); Neutrophils % (A) 82 %; Platelet Count 215 k/uL (150-450); RBC 5.12 m/uL (4.30-5.90); RDW 11.6 % (11.5-15.5); WBC 15.9 k/uL (3.8-10.6)
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
[2020-09-28 07:29] LABS: ALT 26 U/L (4-49); AST 49 U/L (17-59); African American GFR (CKD) >90 (>60 ml/min/1.73 sqM); Albumin 4.9 g/dL (3.5-5.0); Alkaline Phosphatase 84 U/L (38-126); Anion Gap 11 mmol/L; Blood Urea Nitrogen 15 mg/dL (9-20); Calcium 9.5 mg/dL (8.4-10.2); Carbon Dioxide 22 mmol/L (22-30); Chloride 107 mmol/L (98-107); Glucose 105 mg/dL (74-99); Non-African American GFR(CKD) >90 (>60 ml/min/1.73 sqM); Potassium 3.9 mmol/L (3.5-5.1); Sodium 140 mmol/L (137-145); Total Bilirubin 0.5 mg/dL (0.2-1.3); Total Protein 7.7 g/dL (6.3-8.2)
[2020-09-28 07:36] LABS: Alcohol 152 mg/dL
[2020-09-28] MEDS ORDERED: SODIUM CHLORIDE 0.9% 1,000 ML IV STA (07:41)
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
[2020-09-28 07:45] LABS: Partial Thromboplastin Time 25.8 sec (22.0-30.0); Prothrombin Time 10.3 sec (9.0-12.0)
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
[2020-09-28] MEDS ORDERED: AMOXIC-POT CLAV 875MG STARTER PACK 2 TAB BTL PO STA (09:19)
== END 2020-09-28 09:41 | disposition home or self-care (01) ==
LOC: EC 06:38
DX: S02.2XXA Fracture of nasal bones, initial encounter for closed fracture (principal); S01.511A Laceration without foreign body of lip, initial encounter; S01.81XA Laceration without foreign body of other part of head, initial encounter; S05.10XA Contusion of eyeball and orbital tissues, unspecified eye, initial encounter; S60.519A Abrasion of unspecified hand, initial encounter; F17.200 Nicotine dependence, unspecified, uncomplicated; Z88.5 Allergy status to narcotic agent; Y04.0XXA Assault by unarmed brawl or fight, initial encounter; Y92.89 Other specified places as the place of occurrence of the external cause
CPT/HCPCS: 93005; 80053; 83605; 85025; 85610; 85730; 71045; 72125; 70486; 70450; 99284; 12016; 96360; G0480; J2001; 80320

== ENCOUNTER 2020-10-28 16:31 | Emergency (ER) | payer OTHER ==
[2020-10-28 16:38] VITALS: BP 133/68; PULSE 106; RESP 18; TEMP 97.8
--- NOTE | 2020-10-28 16:45 | ED ---
Recheck HPI - General Chief Complaint: Recheck/Abnormal Lab/Rx Stated Complaint: Revisit - Recheck Time Seen by Provider: 10/28/20 16:43 Source: patient Mode of arrival: ambulatory Limitations: no limitations - History of Present Illness Initial Comments: 30-year-old male presenting to the emergency department with a chief complaint of a laceration check. Patient reports he laceration on his chin about 1 month ago. Patient states he had multiple sutures and he removed himself instead of a medical professional. Patient states now he has an "bump" where the laceration was. Patient states it is slightly painful to the touch. Denies any discharge from region. Denies any other facial swelling. - Related Data Previous Rx's Medication Instructions Recorded Tobramycin 0.3% Ophth Soln [Tobrex 1 - 2 drop BOTH EYES QID 7 Days ml 07/06/18 0.3% Ophth Soln] Amoxicillin/Potassium Clav 1 tab PO Q12HR #20 tab 09/28/20 [Augmentin 875-125 Tablet] Cephalexin [Keflex] 500 mg PO Q6HR #20 cap 10/28/20 Allergies Allergy/AdvReac Type Severity Reaction Status Date / Time codeine Allergy Rash/Hives Verified 10/28/20 16:38 Review of Systems ROS Statement: Those systems with pertinent positive or pertinent negative responses have been documented in the HPI. ROS Other: All systems not noted in ROS Statement are negative. Past Medical History Past Medical History: No Reported History Additional Past Medical History / Comment(s): back pain, depression, shoulder seperation History of Any Multi-Drug Resistant Organisms: None Reported Past Surgical History: Tonsillectomy Past Psychological History: Anxiety, Bipolar, Depression Smoking Status: Current every day smoker Past Alcohol Use History: Occasional Past Drug Use History: Marijuana General Exam Limitations: no limitations General appearance: alert, in no apparent distress Head exam: Present: atraumatic, normocephalic, normal inspection Eye exam: Present: normal appearance, PERRL, EOMI Pupils: Present: normal accommodation ENT exam: Present: normal exam, normal oropharynx, mucous membranes moist, other (Scarring on the middle of the chin inferior to the bottom lip. There is a lesion measuring approximately 5 mm in diameter that is fluctuant. No s urrounding erythema mild tenderness to palpation) Neck exam: Present: normal inspection, full ROM Respiratory exam: Present: normal lung sounds bilaterally. Absent: respiratory distress, wheezes, rales, rhonchi, stridor Cardiovascular Exam: Present: regular rate, normal rhythm, normal heart sounds Extremities exam: Present: normal inspection, full ROM Back exam: Present: normal inspection, full ROM Neurological exam: Present: alert, oriented X3 Psychiatric exam: Present: normal affect, normal mood Skin exam: Present: warm, dry, intact, normal color Course Vital Signs 10/28/20 16:36 Temperature 97.8 F Pulse Rate 106 H Respiratory 18 Rate Blood Pressure 133/68 O2 Sat by Pulse 100 Oximetry Medical Decision Making - Medical Decision Making 22-year-old male presenting to the emergency department with a chief complaint of laceration check. On physical examination, there is a small fluctuant lesion measuring approximately 5 mm in diameter where the old laceration was. Patient pulled the sutures himself. This occurred about one month ago. His tetanus is up-to-date. I did perform a needle aspiration and only blood was removed. No signs of pustular drainage. Patient will be started on Keflex. Discharged from discussed the patient was understanding and agreeable. Case discussed with physician. Disposition Clinical Impression: Laceration re-check, Healing wound Disposition: HOME SELF-CARE Condition: Stable Instructions (If sedation given, give patient instructions): Care For Your Stitches (DC), Laceration (DC) Additional Instructions: Take prescribed medication as directed. Return to emergency department if symptoms worsen. Prescriptions: Cephalexin [Keflex] 500 mg PO Q6HR #20 cap Is patient prescribed a controlled substance at d/c from ED?: No Referrals: None,Stated [Primary Care Provider] - 1-2 days Time of Disposition: 16:56
== END 2020-10-28 17:14 | disposition home or self-care (01) ==
LOC: EC 16:31
DX: S01.81XD Laceration without foreign body of other part of head, subsequent encounter (principal); L98.9 Disorder of the skin and subcutaneous tissue, unspecified; F17.200 Nicotine dependence, unspecified, uncomplicated; Z88.5 Allergy status to narcotic agent; X58.XXXD Exposure to other specified factors, subsequent encounter
CPT/HCPCS: 10160; 99282

== ENCOUNTER 2020-11-26 15:04 | Emergency (ER) | payer OTHER ==
[2020-11-26 15:09] VITALS: BP 126/82; PULSE 95; RESP 18; TEMP 97.7
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
== END 2020-11-26 15:45 | disposition home or self-care (01) ==
LOC: EC 15:04
DX: B35.3 Tinea pedis (principal); F17.200 Nicotine dependence, unspecified, uncomplicated; Z88.5 Allergy status to narcotic agent
CPT/HCPCS: 99282

== ENCOUNTER 2021-01-17 20:41 | Emergency (ER) | payer OTHER ==
[2021-01-17 20:55] VITALS: TEMP 98
[2021-01-17] MEDS ORDERED: SODIUM CHLORIDE 0.9% 1,000 ML IV STA (21:14)
--- NOTE | 2021-01-17 21:50 | ED ---
General Adult HPI - General Chief complaint: Recheck/Abnormal Lab/Rx Stated complaint: Ingested Antifreeze at 1400 Time Seen by Provider: 01/17/21 21:13 Source: patient Mode of arrival: ambulatory Limitations: no limitations - History of Present Illness Initial comments: This patient is 30-year-old man who presents with concerns about possible ethylene glycol ingestion and toxicity. The patient had been working with some antifreeze and placed some of it in to a soda can. When he finished working he picked up a soda can and by mistake drank some of the ethylene glycol. The patient states it was a small amounts and when he realized what he had done he induced emesis. The patient then drank some water and had another episode of vomiting. He called poison control and was advised that as it was probably a small exposure he was probably okay but should he started expressing any symptoms she should go to the emergency department. Patient states that this evening he started feeling a little funny, being slightly off balance so he presents here to be evaluated. Patient denies any other symptoms. Onset/Timin -: hour(s) Severity scale (1-10): 0 Improves with: none Worsens with: none Associated Symptoms: denies other symptoms Treatments Prior to Arrival: none - Related Data Home Medications Medication Instructions Recorded Confirmed Dextroamphetamine/Amphetamine 20 mg PO DAILY 01/17/21 01/17/21 [Adderall] Divalproex ER [Depakote ER] 1,000 mg PO HS 01/17/21 01/17/21 Divalproex ER [Depakote ER] 250 mg PO HS 01/17/21 01/17/21 Prazosin HCl 2 mg PO HS 01/17/21 01/17/21 guanFACINE HCL [Intuniv] 1 mg PO DAILY 01/17/21 01/17/21 traZODone HCL [Desyrel] 50 mg PO HS 01/17/21 01/17/21 Allergies Allergy/AdvReac Type Severity Reaction Status Date / Time codeine Allergy Rash/Hives Verified 01/17/21 23:14 Review of Systems ROS Statement: Those systems with pertinent positive or pertinent negative responses have been documented in the HPI. ROS Other: All systems not noted in ROS Statement are negative. Constitutional: Denies: fever, chills, weakness Eyes: Denies: eye pain, vision change ENT: Denies: throat pain, congestion Respiratory: Denies: cough, dyspnea Cardiovascular: Denies: chest pain, palpitations, edema, syncope Gastrointestinal: Reports: as per HPI, vomiting. Denies: abdominal pain, diarrhea, melena, hematochezia Genitourinary: Denies: dysuria, hematuria Musculoskeletal: Denies: back pain Skin: Denies: rash Neurological: Reports: other (Off balance). Denies: headache, weakness, numbness, paresthesias, confusion Past Medical History Past Medical History: No Reported History Additional Past Medical History / Comment(s): back pain, depression, shoulder seperation History of Any Multi-Drug Resistant Organisms: None Reported Past Surgical History: Tonsillectomy Additional Past Surgical History / Comment(s): wisdom teeth extraction Past Psychological History: ADD/ADHD, Anxiety, Bipolar, Depression Smoking Status: Current every day smoker Past Alcohol Use History: None Reported Past Drug Use History: Marijuana General Exam Limitations: no limitations General appearance: alert, in no apparent distress Head exam: Present: atraumatic, normocephalic Eye exam: Present: normal appearance, PERRL, EOMI. Absent: scleral icterus, conjunctival injection, nystagmus ENT exam: Present: normal oropharynx Neck exam: Present: normal inspection, full ROM Respiratory exam: Present: normal lung sounds bilaterally. Absent: respiratory distress, wheezes, rales, rhonchi, stridor Cardiovascular Exam: Present: regular rate, normal rhythm, normal heart sounds. Absent: systolic murmur, diastolic murmur, rubs, gallop GI/Abdominal exam: Present: soft. Absent: distended, tenderness, guarding, rebound, rigid, mass Extremities exam: Present: normal inspection, normal capillary refill. Absent: pedal edema, calf tenderness Back exam: Present: normal inspection. Absent: CVA tenderness (R), CVA tenderness (L) Neurological exam: Present: alert, oriented X3, CN II-XII intact, reflexes norm al. Absent: altered, motor sensory deficit Psychiatric exam: Absent: suicidal ideation Skin exam: Present: warm, dry, intact, normal color. Absent: rash Course Vital Signs 01/17/21 01/17/21 01/17/21 20:51 22:09 23:17 Temperature 98.0 F Pulse Rate 90 95 96 Respiratory 17 18 18 Rate Blood Pressure 122/79 125/83 114/73 O2 Sat by Pulse 100 100 99 Oximetry 01/17/21 23:45 Temperature Pulse Rate 87 Respiratory 16 Rate Blood Pressure 116/72 O2 Sat by Pulse 99 Oximetry EKG Findings - EKG Results: EKG: interpreted by MISA ELLIS, sinus rhythm (Rate 83 bpm), normal axis, normal QRS, normal ST/T, no acute changes Medical Decision Making - Medical Decision Making Patient is 30-year-old man with possible ethylene glycol ingestion. Patient had studies and case discussed with poison control and patient does not appear to be at risk at this point. Discussed appropriate follow-up and also return parameters. - Lab Data Result diagrams: 01/17/21 21:54 01/17/21 21:54 Lab Results 01/17/21 01/17/21 01/17/21 Range/Units 21:54 21:54 21:54 WBC 9.4 (3.8-10.6) k/uL RBC 5.04 (4.30-5.90) m/uL Hgb 15.2 (13.0-17.5) gm/dL Hct 43.1 (39.0-53.0) % MCV 85.5 (80.0-100.0) fL MCH 30.1 (25.0-35.0) pg MCHC 35.2 (31.0-37.0) g/dL RDW 11.6 (11.5-15.5) % Plt Count 217 (150-450) k/uL MPV 7.7 Neutrophils % 60 % Lymphocytes % 27 % Monocytes % 5 % Eosinophils % 6 % Basophils % 1 % Neutrophils # 5.6 (1.3-7.7) k/uL Lymphocytes # 2.6 (1.0-4.8) k/uL Monocytes # 0.4 (0-1.0) k/uL Eosinophils # 0.5 (0-0.7) k/uL Basophils # 0.1 (0-0.2) k/uL VBG pH (7.31-7.41) VBG pCO2 (37-51) mmHg VBG HCO3 (24-28) mmol/L Sodium 142 (137-145) mmol/L Potassium 4.0 (3.5-5.1) mmol/L Chloride 104 (98-107) mmol/L Carbon Dioxide 30 (22-30) mmol/L Anion Gap 8 mmol/L BUN 12 (9-20) mg/dL Creatinine 0.93 (0.66-1.25) mg/dL Est GFR (CKD-EPI)AfAm >90 (>60 ml/min/1.73 sqM) Est GFR (CKD-EPI)NonAf >90 (>60 ml/min/1.73 sqM) Glucose 84 (74-99) mg/dL Osmolality 295 (280-301) mosm/kg Calcium 9.8 (8.4-10.2) mg/dL Total Bilirubin 0.4 (0.2-1.3) mg/dL AST 31 (17-59) U/L ALT 21 (4-49) U/L Alkaline Phosphatase 78 (38-126) U/L CK-MB (CK-2) (0.0-2.4) ng/mL Total Protein 6.7 (6.3-8.2) g/dL Albumin 4.3 (3.5-5.0) g/dL Urine Color Colorless Urine Appearance Clear (Clear) Urine pH 7.5 (5.0-8.0) Ur Specific [place] 1.005 (1.001-1.035) Urine Protein Negative (Negative) Urine Glucose (UA) Negative (Negative) Urine Ketones Negative (Negative) Urine Blood Negative (Negative) Urine Nitrite Negative (Negative) Urine Bilirubin Negative (Negative) Urine Urobilinogen <2.0 (<2.0) mg/dL Ur Leukocyte Esterase Negative (Negative) Salicylates <1.0 mg/dL Urine Opiates Screen Not Detected (NotDetected) Ur Oxycodone Screen Not Detected (NotDetected) Urine Methadone Screen Not Detected (NotDetected) Ur Propoxyphene Screen Not Detected (NotDetected) Acetaminophen <10.0 ug/mL Ur Barbiturates Screen Not Detected (NotDetected) U Tricyclic Antidepress Not Detected (NotDetected) Ur Phencyclidine Scrn Not Detected (NotDetected) Ur Amphetamines Screen Detected H (NotDetected) U Methamphetamines Scrn Not Detected (NotDetected) U Benzodiazepines Scrn Not Detected (NotDetected) Urine Cocaine Screen Not Detected (NotDetected) U Marijuana (THC) Screen Not Detected (NotDetected) Ethylene Glycol (Negative) mg/dL Serum Alcohol <10 mg/dL 01/17/21 01/17/21 01/17/21 Range/Units 21:54 21:54 21:54 WBC (3.8-10.6) k/uL RBC (4.30-5.90) m/uL Hgb (13.0-17.5) gm/dL Hct (39.0-53.0) % MCV (80.0-100.0) fL MCH (25.0-35.0) pg MCHC (31.0-37.0) g/dL RDW (11.5-15.5) % Plt Count (150-450) k/uL MPV Neutrophils % % Lymphocytes % % Monocytes % % Eosinophils % % Basophils % % Neutrophils # (1.3-7.7) k/uL Lymphocytes # (1.0-4.8) k/uL Monocytes # (0-1.0) k/uL Eosinophils # (0-0.7) k/uL Basophils # (0-0.2) k/uL VBG pH 7.38 (7.31-7.41) VBG pCO2 53 H (37-51) mmHg VBG HCO3 30 H (24-28) mmol/L Sodium (137-145) mmol/L Potassium (3.5-5.1) mmol/L Chloride (98-107) mmol/L Carbon Dioxide (22-30) mmol/L Anion Gap mmol/L BUN (9-20) mg/dL Creatinine (0.66-1.25) mg/dL Est GFR (CKD-EPI)AfAm (>60 ml/min/1.73 sqM) Est GFR (CKD-EPI)NonAf (>60 ml/min/1.73 sqM) Glucose (74-99) mg/dL Osmolality (280-301) mosm/kg Calcium (8.4-10.2) mg/dL Total Bilirubin (0.2-1.3) mg/dL AST (17-59) U/L ALT (4-49) U/L Alkaline Phosphatase (38-126) U/L CK-MB (CK-2) 2.1 (0.0-2.4) ng/mL Total Protein (6.3-8.2) g/dL Albumin (3.5-5.0) g/dL Urine Color Urine Appearance (Clear) Urine pH (5.0-8.0) Ur Specific [place] (1.001-1.035) Urine Protein (Negative) Urine Glucose (UA) (Negative) Urine Ketones (Negative) Urine Blood (Negative) Urine Nitrite (Negative) Urine Bilirubin (Negative) Urine Urobilinogen (<2.0) mg/dL Ur Leukocyte Esterase (Negative) Salicylates mg/dL Urine Opiates Screen (NotDetected) Ur Oxycodone Screen (NotDetected) Urine Methadone Screen (NotDetected) Ur Propoxyphene Screen (NotDetected) Acetaminophen ug/mL Ur Barbiturates Screen (NotDetected) U Tricyclic Antidepress (NotDetected) Ur Phencyclidine Scrn (NotDetected) Ur Amphetamines Screen (NotDetected) U Methamphetamines Scrn (NotDetected) U Benzodiazepines Scrn (NotDetected) Urine Cocaine Screen (NotDetected) U Marijuana (THC) Screen (NotDetected) Ethylene Glycol Negative (Negative) mg/dL Serum Alcohol mg/dL Disposition Clinical Impression: Ingestion of toxic substance Disposition: HOME SELF-CARE Condition: Good Instructions (If sedation given, give patient instructions): Lightheadedness (ED) Is patient prescribed a controlled substance at d/c from ED?: No Referrals: Darshan Concepcion [Primary Care Provider] - 1-2 days
[2021-01-17 22:04] LABS: Basophils # (A) 0.1 k/uL (0-0.2); Basophils % (A) 1 %; Eosinophils # (A) 0.5 k/uL (0-0.7); Eosinophils % (A) 6 %; HCT 43.1 % (39.0-53.0); HGB 15.2 gm/dL (13.0-17.5); Lymphocytes # (A) 2.6 k/uL (1.0-4.8); Lymphocytes % (A) 27 %; MCH 30.1 pg (25.0-35.0); MCHC 35.2 g/dL (31.0-37.0); MCV 85.5 fL (80.0-100.0); Mean Platelet Volume 7.7; Monocytes # (A) 0.4 k/uL (0-1.0); Monocytes % (A) 5 %; Neutrophils # (A) 5.6 k/uL (1.3-7.7); Neutrophils % (A) 60 %; Platelet Count 217 k/uL (150-450); RBC 5.04 m/uL (4.30-5.90); RDW 11.6 % (11.5-15.5); WBC 9.4 k/uL (3.8-10.6)
[2021-01-17 22:07] LABS: VBG PH 7.38 (7.31-7.41)
[2021-01-17 22:17] LABS: Appearance,Urine Clear (Clear); Bilirubin,Urine Negative (Negative); Blood,Urine Negative (Negative); Color,Urine Colorless; Glucose,Urine (UA) Negative (Negative); Ketones,Urine Negative (Negative); Leukocyte Esterase,Urine Negative (Negative); Nitrite,Urine Negative (Negative); PH, Urine 7.5 (5.0-8.0); Protein,Urine Negative (Negative); Urobilinogen,Urine <2.0 mg/dL (<2.0)
[2021-01-17 22:28] LABS: ALT 21 U/L (4-49); AST 31 U/L (17-59); Acetaminophen <10.0 ug/mL; African American GFR (CKD) >90 (>60 ml/min/1.73 sqM); Albumin 4.3 g/dL (3.5-5.0); Alcohol <10 mg/dL; Alkaline Phosphatase 78 U/L (38-126); Anion Gap 8 mmol/L; Blood Urea Nitrogen 12 mg/dL (9-20); Calcium 9.8 mg/dL (8.4-10.2); Carbon Dioxide 30 mmol/L (22-30); Chloride 104 mmol/L (98-107); Glucose 84 mg/dL (74-99); Non-African American GFR(CKD) >90 (>60 ml/min/1.73 sqM); Salicylate <1.0 mg/dL; Sodium 142 mmol/L (137-145); Total Bilirubin 0.4 mg/dL (0.2-1.3); Total Protein 6.7 g/dL (6.3-8.2)
[2021-01-17 22:58] LABS: Amphetamine Screen,Urine Detected (NotDetected); Barbiturate Screen,Urine Not Detected (NotDetected); Benzodiazepines Screen,Urine Not Detected (NotDetected); Cocaine Screen,Urine Not Detected (NotDetected); Methadone Screen, Urine Not Detected (NotDetected); Opiate Screen,Urine Not Detected (NotDetected); Oxycodone Screen, Urine Not Detected (NotDetected); Phencyclidine Screen,Urine Not Detected (NotDetected); Tricyclic Antidepressant,Urine Not Detected (NotDetected); Urn Cannabinoid Scrn Not Detected (NotDetected)
[2021-01-17 23:46] VITALS: BP 116/72; PULSE 87; RESP 16
[2021-01-18 00:03] LABS: Specific Gravity,Urine 1.005 (1.001-1.035)
== END 2021-01-17 23:46 | disposition home or self-care (01) ==
LOC: EC 20:41
DX: T52.8X1A Toxic effect of other organic solvents, accidental (unintentional), initial encounter (principal); F32.9 Major depressive disorder, single episode, unspecified; Z90.09 Acquired absence of other part of head and neck; F17.200 Nicotine dependence, unspecified, uncomplicated; F12.90 Cannabis use, unspecified, uncomplicated
CPT/HCPCS: 36415; 93005; 84600; 83930; 80053; 82553; 82803; 85025; 81003; 80306; 80143; 80179; 99284; G0480; 80320

== ENCOUNTER 2021-12-10 17:51 | Emergency (ER) | payer OTHER ==
[2021-12-10 18:03] VITALS: BP 105/67; PULSE 82; RESP 20; TEMP 97.9
[2021-12-10] MEDS ORDERED: DIPH,PERTUS(ACELL)TETVAC-LF 0.5 ML VIAL IM ONE (18:21)
[2021-12-10] MEDS ORDERED: PROPARACAINE 0.5% OPHTH DROPS 15 ML BTL RIGHT EYE STA (18:21)
[2021-12-10] MEDS ORDERED: FLUORESCEIN STRIPS 1 MG STRIP RIGHT EYE ONE (18:22)
[2021-12-10] MEDS ORDERED: ACETAMINOPHEN TAB 325 MG TAB PO STA (18:47)
--- NOTE | 2021-12-10 18:47 | ED ---
General Adult HPI - General Chief complaint: Eye Problems Stated complaint: Metal in eye Time Seen by Provider: 12/10/21 18:30 Source: patient, RN notes reviewed, old records reviewed Mode of arrival: ambulatory Limitations: no limitations - History of Present Illness Initial comments: 31-year-old male presents to the emergency room with complaints of possible foreign body in his right eye since last night. Patient states that he was under a car and possibly piece of rust is in his eye. He has had this happen multiple times in the past. He states that he was wearing protective glasses. He is unsure if his tetanus shot is up-to-date. -: hour(s) (12) Location: eyes (right) Severity scale (1-10): 7 Quality: constant Consistency: constant Improves with: none Worsens with: none Associated Symptoms: denies other symptoms Treatments Prior to Arrival: none - Related Data Home Medications Medication Instructions Recorded Confirmed Dextroamphetamine/Amphetamine 20 mg PO DAILY 01/17/21 01/17/21 [Adderall] Divalproex ER [Depakote ER] 1,000 mg PO HS 01/17/21 01/17/21 Divalproex ER [Depakote ER] 250 mg PO HS 01/17/21 01/17/21 Prazosin HCl 2 mg PO HS 01/17/21 01/17/21 guanFACINE HCL [Intuniv] 1 mg PO DAILY 01/17/21 01/17/21 traZODone HCL [Desyrel] 50 mg PO HS 01/17/21 01/17/21 Allergies Allergy/AdvReac Type Severity Reaction Status Date / Time codeine Allergy Rash/Hives Verified 12/10/21 18:01 Review of Systems ROS Statement: Those systems with pertinent positive or pertinent negative responses have been documented in the HPI. ROS Other: All systems not noted in ROS Statement are negative. Past Medical History Past Medical History: No Reported History Additional Past Medical History / Comment(s): back pain, depression, shoulder seperation History of Any Multi-Drug Resistant Organisms: None Reported Past Surgical History: Tonsillectomy Additional Past Surgical History / Comment(s): wisdom teeth extraction Past Psychological History: ADD/ADHD, Anxiety, Bipolar, Depression Smoking Status: Current every day smoker Past Alcohol Use History: None Reported Past Drug Use History: Marijuana General Exam Limitations: no limitations General appearance: alert, in no apparent distress Head exam: Present: atraumatic, normocephalic, normal inspection Eye exam: Present: PERRL, EOMI, other (internal sty at 1:00 upper eyelid). Absent: scleral icterus, conjunctival injection, periorbital swelling, periorbi ancelmo tenderness Pupils: Present: normal accommodation Expanded Eyelids: Normal Inspection: Left, Stye: Right (internal sty 1:00 upper lid; no evidence of corneal abrasion under Razo lamp) Pupils: Regular, Round: Bilateral Sclera/Conjunctival: Normal Inspection: Bilateral Anterior chamber: Normal Inspection: Bilateral ENT exam: Present: mucous membranes moist Respiratory exam: Present: normal lung sounds bilaterally. Absent: accessory muscle use, decreased breath sounds Cardiovascular Exam: Present: regular rate Neurological exam: Present: alert, oriented X3, normal gait Psychiatric exam: Present: normal affect, normal mood Skin exam: Present: warm, dry, normal color. Absent: cyanosis, diaphoretic Course Vital Signs 12/10/21 18:01 Temperature 97.9 F Pulse Rate 82 Respiratory 20 Rate Blood Pressure 105/67 O2 Sat by Pulse 95 Oximetry Medical Decision Making - Medical Decision Making Patient presents with foreign body sensation to his right eye since last night. Fluorescein and Razo lamp reveal no foreign body or corneal abrasion. Anterior chamber is clear, negative Catia sign. Patient denies any vision changes. Inversion of the eyelids revealed an internal stye upper eyelid at 1:00. Patient will be given a referral to ophthalmology. Instructed use warm moist compresses multiple times throughout the day. In reviewing his medical records, he was given a tetanus shot in 2018. Case discussed with Dr. Rivas. Disposition Clinical Impression: Sty, internal Disposition: HOME SELF-CARE Condition: Good Instructions (If sedation given, give patient instructions): ye (ED) Additional Instructions: Use warm moist compresses to the eye multiple times throughout the day. Styes usually resolve within 1 week on their own. Take Tylenol and or Motrin as needed for any discomfort. Follow-up with ophthalmology next week. Is patient prescribed a controlled substance at d/c from ED?: No Referrals: Darshan Concepcion [Primary Care Provider] - 1-2 days Dontae Frazier MD [STAFF PHYSICIAN] - 1-2 days Time of Disposition: 19:04
== END 2021-12-10 19:50 | disposition home or self-care (01) ==
LOC: EC 17:51
DX: H00.021 Hordeolum internum right upper eyelid (principal); F90.9 Attention-deficit hyperactivity disorder, unspecified type; F41.9 Anxiety disorder, unspecified; F31.9 Bipolar disorder, unspecified; F17.200 Nicotine dependence, unspecified, uncomplicated; F12.90 Cannabis use, unspecified, uncomplicated; Z88.5 Allergy status to narcotic agent
CPT/HCPCS: 99283

== ENCOUNTER 2022-04-11 22:32 | Emergency (ER) | payer OTHER ==
[2022-04-11 22:44] VITALS: BP 123/78; PULSE 84; RESP 16; TEMP 98.2
--- NOTE | 2022-04-11 22:55 | ED ---
Upper Extremity HPI - General Chief Complaint: Extremity Injury, Upper Stated Complaint: Left Hand Injury Time Seen by Provider: 04/11/22 22:36 Source: patient, RN notes reviewed Mode of arrival: ambulatory Limitations: no limitations - History of Present Illness Initial Comments: Patient was working in the garage door 2 days ago and ended up striking him in the left hand. Patient complaining of pain with overlying abrasion to the left fifth metacarpal area. Pain is exacerbated by movement. Alleviated by rest. No radiation. No distal numbness or tingling. No distal proximal injuries. Full range of motion. No headache, no fever or chills, no changes in vision or hearing, no sore throat or difficulty with speech, no neck pain, no chest pain or shortness of breath, no abdominal pain, no nausea or vomiting, no changes in urination or bowel movements, no numbness or tingling, no extremity pain, no skin rashes or lesi ons. MD Complaint: Injury to:: left, hand - Related Data Home Medications Medication Instructions Recorded Confirmed Dextroamphetamine/Amphetamine 20 mg PO DAILY 01/17/21 01/17/21 [Adderall] Divalproex ER [Depakote ER] 1,000 mg PO HS 01/17/21 01/17/21 Divalproex ER [Depakote ER] 250 mg PO HS 01/17/21 01/17/21 Prazosin HCl 2 mg PO HS 01/17/21 01/17/21 guanFACINE HCL [Intuniv] 1 mg PO DAILY 01/17/21 01/17/21 traZODone HCL [Desyrel] 50 mg PO HS 01/17/21 01/17/21 Allergies Allergy/AdvReac Type Severity Reaction Status Date / Time codeine Allergy Rash/Hives Verified 04/11/22 22:41 Review of Systems ROS Statement: Those systems with pertinent positive or pertinent negative responses have been documented in the HPI. ROS Other: All systems not noted in ROS Statement are negative. Past Medical History Past Medical History: No Reported History Additional Past Medical History / Comment(s): back pain, depression, shoulder seperation History of Any Multi-Drug Resistant Organisms: None Reported Past Surgical History: Tonsillectomy Additional Past Surgical History / Comment(s): wisdom teeth extraction Past Psychological History: ADD/ADHD, Anxiety, Bipolar, Depression Smoking Status: Former smoker Past Alcohol Use History: None Reported Past Drug Use History: None Reported, Marijuana General Exam Limitations: no limitations General appearance: alert, in no apparent distress Head exam: Present: atraumatic, normocephalic, normal inspection Eye exam: Present: normal appearance Neck exam: Present: normal inspection Respiratory exam: Present: normal lung sounds bilaterally. Absent: respiratory distress, wheezes, rales, rhonchi, stridor Cardiovascular Exam: Present: regular rate, normal rhythm, normal heart sounds. Absent: systolic murmur, diastolic murmur, rubs, gallop, clicks GI/Abdominal exam: Present: soft. Absent: distended, tenderness Extremities exam: Present: full ROM, tenderness (Patient has tenderness to the area of the fifth metacarpophalangeal joint and distal fifth metacarpal. Healing overlying abrasion without evidence of infectious process.), normal capillary refill. Absent: pedal edema, joint swelling, calf tenderness Neurological exam: Present: alert, oriented X3, CN II-XII intact Psychiatric exam: Present: normal affect, normal mood Skin exam: Present: warm, dry, normal color. Absent: rash Course Vital Signs 04/11/22 22:41 Temperature 98.2 F Pulse Rate 84 Respiratory 16 Rate Blood Pressure 123/78 O2 Sat by Pulse 100 Oximetry Medical Decision Making - Medical Decision Making Isolated injury to left hand. Appears to be overlying abrasion. No evidence of infectious process. No neurovascular Arise. Normal capillary refill. We'll obtain plain film x-rays. Plan for discharge. Patient was told to return to the ER for any signs or symptoms worsen. Told to return immediately if any other problems arise. All questions answered. Treatment plan discussed. Patient in agreement Every effort has been made to ensure accuracy of this dictation. However, due to the limitations of electronic medical records and dictation devices, errors in charting still occur. Collaborating Supervising Physician Dr. López - Radiology Data Radiology results: report reviewed (No acute findings as read by me. No fracture. No dislocation. No significant soft tissue changes. No foreign body), image reviewed Disposition Clinical Impression: Contusion of left hand, initial encounter, Abrasion of left hand Disposition: HOME SELF-CARE Condition: Good Instructions (If sedation given, give patient instructions): Abrasion (ED), Contusion in Adults (ED) Additional Instructions: Use [id number] acetaminophen and/or ibuprofen for pain control. Is patient prescribed a controlled substance at d/c from ED?: No Referrals: Darshan Concepcion [Primary Care Provider] - 1-2 days Time of Disposition: 23:13
--- NOTE | 2022-04-11 23:09 | XR ---
EXAMINATION TYPE: XR hand complete LT DATE OF EXAM: 04/11/2022 COMPARISON: NONE HISTORY: Trampoline injury. Pain TECHNIQUE: 3 views FINDINGS: Metacarpals are intact. I see no fracture nor dislocation. Fingers are intact. Joint spaces are normal. There is some deformity of the distal phalanx of the ring finger consistent with an old fracture. IMPRESSION: No acute abnormality of the left hand.
== END 2022-04-12 00:11 | disposition home or self-care (01) ==
LOC: EC 22:32
DX: S60.222A Contusion of left hand, initial encounter (principal); F31.9 Bipolar disorder, unspecified; F41.9 Anxiety disorder, unspecified; F90.9 Attention-deficit hyperactivity disorder, unspecified type; Z87.891 Personal history of nicotine dependence; Z88.5 Allergy status to narcotic agent; Z79.899 Other long term (current) drug therapy; W22.8XXA Striking against or struck by other objects, initial encounter; Y92.59 Other trade areas as the place of occurrence of the external cause
CPT/HCPCS: 99283

== ENCOUNTER 2022-04-30 16:01 | Emergency (ER) | payer OTHER ==
[2022-04-30 16:16] VITALS: RESP 18; TEMP 97.9
[2022-04-30] MEDS ORDERED: IBUPROFEN 800 MG TAB PO STA (16:59)
--- NOTE | 2022-04-30 17:03 | ED ---
Upper Extremity HPI - General Chief Complaint: Extremity Injury, Upper Stated Complaint: finger - right middle Time Seen by Provider: 04/30/22 16:58 Source: patient Mode of arrival: ambulatory Limitations: no limitations - History of Present Illness Initial Comments: 32-year-old male presents emergency room after sustaining a injury to his right middle finger last night after striking his finger against a metal pole. Patient developed bruising under the nail was going to use a hot pin to puncture the nail but couldn't bring himself to do it. He is coming to the emergency room with increased pain today. MD Complaint: Injury to:: right, finger (middle) -: days(s) (1) Severity scale (1-10): 7 Improves With: none Worsens With: other (palpation) Associated Symptoms: denies other symptoms - Related Data Home Medications Medication Instructions Recorded Confirmed Dextroamphetamine/Amphetamine 20 mg PO DAILY 01/17/21 01/17/21 [Adderall] Divalproex ER [Depakote ER] 1,000 mg PO HS 01/17/21 01/17/21 Divalproex ER [Depakote ER] 250 mg PO HS 01/17/21 01/17/21 Prazosin HCl 2 mg PO HS 01/17/21 01/17/21 guanFACINE HCL [Intuniv] 1 mg PO DAILY 01/17/21 01/17/21 traZODone HCL [Desyrel] 50 mg PO HS 01/17/21 01/17/21 Previous Rx's Medication Instructions Recorded Ibuprofen [Motrin] 800 mg PO Q6HR #30 tab 04/30/22 Allergies Allergy/AdvReac Type Severity Reaction Status Date / Time codeine Allergy Rash/Hives Verified 04/30/22 16:16 Review of Systems ROS Statement: Those systems with pertinent positive or pertinent negative responses have been documented in the HPI. ROS Other: All systems not noted in ROS Statement are negative. Past Medical History Past Medical History: No Reported History Additional Past Medical History / Comment(s): back pain, depression, shoulder seperation History of Any Multi-Drug Resistant Organisms: None Reported Past Surgical History: Tonsillectomy Additional Past Surgical History / Comment(s): wisdom teeth extraction Past Psychological History: ADD/ADHD, Anxiety, Bipolar, Depression Smoking Status: Former smoker Past Alcohol Use History: None Reported Past Drug Use History: None Reported, Marijuana General Exam Limitations: no limitations General appearance: alert, in no apparent distress Head exam: Present: atraumatic Eye exam: Absent: scleral icterus, conjunctival injection Neck exam: Present: full ROM. Absent: meningismus Respiratory exam: Absent: respiratory distress, accessory muscle use Cardiovascular Exam: Present: regular rate Extremities exam: Present: normal capillary refill Right Hand Wrist exam: Present: subungual hematoma (Right middle finger proximal third of the nail, swelling to distal ring finger) Vascular: Present: normal capillary refill. Absent: vascular compromise Neurological exam: Present: alert, oriented X3 Psychiatric exam: Present: normal affect, normal mood Skin exam: Present: warm, dry, normal color. Absent: cyanosis, diaphoretic Course Vital Signs 04/30/22 04/30/22 16:14 18:08 Temperature 97.9 F Pulse Rate 82 78 Respiratory 18 18 Rate Blood Pressure 124/90 122/74 O2 Sat by Pulse 100 99 Oximetry Medical Decision Making - Medical Decision Making Subungual hematoma sustained last night after hitting finger against a metal pipe. Trephination performed with no significant drainage. X-ray completed, negative for fracture. Patient was given Motrin for pain. An aluminum splint was placed for comfort. He was instructed to return to the emergency room with any new or concerning symptoms. Soak finger in warm soapy water twice a day for the next 3 days. He is agreeable to this plan of care. Case discussed with Dr. Rodriguez. Disposition Clinical Impression: Finger contusion, Subungual hematoma of fingernail Disposition: HOME SELF-CARE Condition: Good Instructions (If sedation given, give patient instructions): Subungual Hematoma (ED) Additional Instructions: Take Tylenol and/or Motrin as needed for pain. Rest, ice and elevate while at home. Follow-up with your primary care doctor next week. Prescriptions: Ibuprofen [Motrin] 800 mg PO Q6HR #30 tab Is patient prescribed a controlled substance at d/c from ED?: No Referrals: Darshan Concepcion [Primary Care Provider] - 1-2 days Time of Disposition: 17:51
--- NOTE | 2022-04-30 17:42 | XR ---
EXAMINATION TYPE: XR finger RT DATE OF EXAM: 04/30/2022 5:35 PM INDICATION: Patient age:Male; 32 years old; Reason for study: injury; COMPARISON: None TECHNIQUE: Frontal, lateral and oblique views of the right third digit were obtained. FINDINGS: Normal alignment of the visualized joints. No acute osseous pathology is identified. No e vidence of soft tissue swelling. IMPRESSION: No acute osseous pathology.
[2022-04-30 18:09] VITALS: BP 122/74; PULSE 78
== END 2022-04-30 18:09 | disposition home or self-care (01) ==
LOC: EC 16:01
DX: S60.131A Contusion of right middle finger with damage to nail, initial encounter (principal); F41.9 Anxiety disorder, unspecified; F31.9 Bipolar disorder, unspecified; Z87.891 Personal history of nicotine dependence; F12.90 Cannabis use, unspecified, uncomplicated; Z88.5 Allergy status to narcotic agent; Z79.899 Other long term (current) drug therapy; W22.8XXA Striking against or struck by other objects, initial encounter
CPT/HCPCS: 99284

== ENCOUNTER 2022-10-23 16:49 | Emergency (ER) | payer OTHER ==
[2022-10-23 17:00] VITALS: TEMP 98.2
--- NOTE | 2022-10-23 17:15 | ED ---
General Adult HPI - General Chief complaint: Extremity Problem,Nontraumatic Stated complaint: L. Foot Swelling Time Seen by Provider: 10/23/22 17:00 Source: patient Mode of arrival: ambulatory - History of Present Illness Initial comments: Dictation was produced using [employer] dictation software. please excuse any grammatical, word or spelling errors. Chief Complaint: 32-year-old male with 1 week of left second toe pain History of Present Illness: To 32-year-old male several months ago he suffered a accidental amputation of the left second toe there is told that because there is minimal padding to the bone that he can suffer a bone infection. Easily. Patient excellently suffered a small skin superficial laceration to that toe. It healed well. He states that 3 days ago his pet stepped on his foot and spacer to get worse. Patient worried that he is an infection. States it hurts. Does appear to be bruised. The ROS documented in this emergency department record has been reviewed and confirmed by me. Those systems with pertinent positive or negative responses have been documented in the HPI. All other systems are other negative and/or noncontributory. PHYSICAL EXAM: General Impression: Alert and oriented x3, not in acute distress HEENT: Normocephalic atraumatic, extra-ocular movements intact, pupils equal and reactive to light bilaterally, mucous membranes moist. Cardiovascular: Heart regular rate and rhythm Chest: Able to complete full sentences, no retractions, no tachypnea Musculoskeletal: Pulses present and equal in all extremities, no peripheral edema Motor: no focal deficits noted Neurological: CN II-XII grossly intact, no focal motor or sensory deficits noted Skin: Intact with no visualized rashes Psych: Normal affect and mood Left foot: Ecchymosis to the left second toe, no fluctuance, not warm to the touch ED course: 32-year-old male presents emergency Department with left second toe pain. vital signs upon arrival are within acceptable limits. Nursing notes and chart review was performed X-rays unremarkable. Clinical presentation consistent with second toe contusion. We'll try patient on Keflex to see if patient symptoms improved. Was pt. sent in by a medical professional or institution (, PA, CERTIFIED FLEX ENDOSCOPE REPROCESSOR, urgent care, hospital, or usp...) When possible be specific @ -No Did you speak to anyone other than the patient for history (EMS, parent, family, police, friend...)? What history was obtained from this source @ -No Did you review nursing and triage notes (agree or disagree)? Why? @ -I reviewed and agree with nursing and triage notes Were old charts reviewed (outside hosp., previous admission, EMS record, old EKG, old radiological studies, urgent care reports/EKG's, usp records)? Report findings @ -No old charts were reviewed Differential Diagnosis (chest pain, altered mental status, abdominal pain women, abdominal pain men, vaginal bleeding, weakness, fever, dyspnea, syncope, headache, dizziness, GI bleed, back pain, seizure, CVA, palpatations, mental health)? @ -Osteomyelitis, felon, toe contusion EKG interpreted by me (3pts min.). @ -None done X-rays interpreted by me (1pt min.). @ -See above CT interpreted by me (1pt min.). @ -None done U/S interpreted by me (1pt. min.). @ -None done What testing was considered but not performed or refused? (CT, X-rays, U/S, labs)? Why? @ -Blood work was considered however not having constitutional symptoms and toe does not appear to look infected What meds were considered but not given or refused? Why? @ -None Did you discuss the management of the patient with other professionals (professionals i.e. , PA, CERTIFIED FLEX ENDOSCOPE REPROCESSOR, lab, RT, psych nurse, long term care social worker, supervisor diagnostic, teacher, [employer] revenue officer, telephonic case manager)? Give summary @ -No Was smoking cessation discussed for >3mins.? @ -No Was critical care preformed (if so, how long)? @ -No Were there social determinants of health that impacted care today? How? (Homelessness, low income, unemployed, alcoholism, drug addiction, trans portation, low edu. Level, literacy, decrease access to med. care, assisted, rehab)? @ -No Was there de-escalation of care discussed even if they declined (Discuss DNR or withdrawal of care, Hospice)? DNR status @ -No What co-morbidities impacted this encounter? (DM, HTN, Smoking, COPD, CAD, Cancer, CVA, ARF, Chemo, Hep., AIDS, mental health diagnosis, sleep apnea, morbid obesity)? @ -History of toe amputation Was patient admitted / discharged? Hospital course, mention meds given and r oute, prescriptions, significant lab abnormalities, going to OR and other pertinent info. @ -See above Undiagnosed new problem with uncertain prognosis? @ -No Drug Therapy requiring intensive monitoring for toxicity (Heparin, Nitro, Insulin, Cardizem)? @ -No Were any procedures done? @ -No Diagnosis/symptom? @ -Toe contusion Acute, or Chronic, or Acute on Chronic? @ -Acute Uncomplicated (without systemic symptoms) or Complicated (systemic symptoms)? @ -default Side effects of treatment? @ -No Exacerbation, Progression, or Severe Exacerbation? @ -No Poses a threat to life or bodily function? How? (Chest pain, [place], NH, pneumonia, PE, COPD, DKA, ARF, appy, cholecystitis, CVA, Diverticulitis, Homicidal, Suicidal, threat to staff... and all critical care pts) @ -No - Related Data Home Medications Medication Instructions Recorded Confirmed Dextroamphetamine/Amphetamine 20 mg PO DAILY 01/17/21 01/17/21 [Adderall] Divalproex ER [Depakote ER] 1,000 mg PO HS 01/17/21 01/17/21 Divalproex ER [Depakote ER] 250 mg PO HS 01/17/21 01/17/21 Prazosin HCl 2 mg PO HS 01/17/21 01/17/21 guanFACINE HCL [Intuniv] 1 mg PO DAILY 01/17/21 01/17/21 traZODone HCL [Desyrel] 50 mg PO HS 01/17/21 01/17/21 Previous Rx's Medication Instructions Recorded Ibuprofen [Motrin] 800 mg PO Q6HR #30 tab 04/30/22 Cephalexin [Keflex] 500 mg PO Q6HR 5 Days #20 cap 10/23/22 Allergies Allergy/AdvReac Type Severity Reaction Status Date / Time codeine Allergy Rash/Hives Verified 10/23/22 17:00 Review of Systems ROS Statement: Those systems with pertinent positive or pertinent negative responses have been documented in the HPI. ROS Other: All systems not noted in ROS Statement are negative. Past Medical History Past Medical History: No Reported History Additional Past Medical History / Comment(s): back pain, depression, shoulder seperation History of Any Multi-Drug Resistant Organisms: None Reported Past Surgical History: Tonsillectomy Additional Past Surgical History / Comment(s): wisdom teeth extraction Past Psychological History: ADD/ADHD, Anxiety, Bipolar, Depression Smoking Status: Former smoker Past Alcohol Use History: None Reported Past Drug Use History: None Reported, Marijuana Course Vital Signs 10/23/22 16:57 Temperature 98.2 F Pulse Rate 91 Respiratory 16 Rate Blood Pressure 143/81 O2 Sat by Pulse 99 Oximetry Disposition Clinical Impression: Toe contusion Disposition: HOME SELF-CARE Condition: Fair Instructions (If sedation given, give patient instructions): Foot Contusion (ED) Prescriptions: Cephalexin [Keflex] 500 mg PO Q6HR 5 Days #20 cap Is patient prescribed a controlled substance at d/c from ED?: No Referrals: None,Stated [Primary Care Provider] - 1-2 days Time of Disposition: 17:43
--- NOTE | 2022-10-23 17:39 | XR ---
EXAMINATION TYPE: XR toes LT DATE OF EXAM: 10/23/2022 COMPARISON: NONE HISTORY: Pain TECHNIQUE: Review FINDINGS: There is amputation of the tuft of the distal phalanx of the second toe. There is no fractu re nor dislocation. No focal bone destruction. IMPRESSION: Amputation deformity. No fracture seen.
[2022-10-23 17:59] VITALS: BP 139/89; PULSE 89; RESP 17
== END 2022-10-23 17:59 | disposition home or self-care (01) ==
LOC: EC 16:49
DX: S90.122A Contusion of left lesser toe(s) without damage to nail, initial encounter (principal); F31.9 Bipolar disorder, unspecified; F41.9 Anxiety disorder, unspecified; Z88.8 Allergy status to other drugs, medicaments and biological substances; Z87.891 Personal history of nicotine dependence; X58.XXXA Exposure to other specified factors, initial encounter
CPT/HCPCS: 99283

== ENCOUNTER → 2023-05-31 | Outpatient (CLI) | payer OTHER ==
--- NOTE | 2023-05-31 14:51 | P.SLEEP ---
History of Present Illness H&P Date: 05/31/23 This is a 33-year-old male patient was referred to me for sleep apnea evaluation. The patient is currently established with Dr. Reich, and he was asked to come in to see Center due to concerns of chronic fatigue and sleepiness. 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 He feels exhausted and sleepy during the day. He was lying on energy drinks and he ultimately quit those drinks and he is drinking nicely. He typically goes to bed at around midnight and wakes up at 8:00 in the morning. He has been told by ex-girlfriend that he snores and quits breathing at night. The patient feels non-refreshed upon arousing the morning. Does not take any naps during the day. He wakes up a few times in the middle of the night to use the bathroom. No sleepwalking. No sleep talking. No restlessness and lower extremities. He sleeps on his side and his back he does not have any preference. His weight has remained stable over the years and he is currently in the order of 220 pounds. No head trauma. He has previous history of anxiety/depression/bipolar disorder and ADHD. The patient has received treatment for insomnia in the past through [facility]. He was given Seroquel and subsequently he was given trazodone to optimize his sleep. Most of those medications increase his fatigue and tiredness and he ultimately ended up quitting those medication. Denies having any active signs of depression at this point in time. Denies waking up with heartburn or chest pain. No palpitations. Occasional grinding of the teeth. His current Guymon score is at 6. Review of Systems Constitutional: Reports daytime sleepiness, Reports fatigue Eyes: denies as per HPI, denies blurred vision, denies bulging eye, denies decreased vision, denies diplopia, denies discharge, denies dry eye, denies irritation, denies itching, denies pain, denies photophobia, denies loss of peripheral vision, denies loss of vision, denies tunnel vision/blind spots Ears: deny: decreased hearing, ear discharge, earache, tinnitus Ears, nose, mouth and throat: Reports as per HPI Breasts: absent: as per HPI, gynecomastia Cardiovascular: Reports as per HPI Respiratory: Reports snoring Gastrointestinal: Reports as per HPI Genitourinary: Reports as per HPI Musculoskeletal: Reports as per HPI Musculoskeletal: absent: ankle pain, ankle stiffness, ankle swelling Integumentary: Reports as per HPI Neurological: Reports as per HPI Psychiatric: Reports anxiety, Reports depression Endocrine: Reports as per HPI Hematologic/Lymphatic: Reports as per HPI Allergic/Immunologic: Reports as per HPI Past Medical History Past Medical History: No Reported History Additional Past Medical History / Comment(s): back pain, depression, shoulder seperation History of Any Multi-Drug Resistant Organisms: None Reported Past Surgical History: Tonsillectomy Additional Past Surgical History / Comment(s): wisdom teeth extraction Past Psychological History: ADD/ADHD, Anxiety, Bipolar, Depression Smoking Status: Former smoker Past Alcohol Use History: None Reported Past Drug Use History: None Reported, Marijuana Medications and Allergies Home Medications and Allergies Comment(s): Patient was taking a combination of various medications including trazodone, prazosin, and Depakote. Currently is off those medication. He has also utilized Adderall in the past. Home Medications Medication Instructions Recorded Confirmed Type Dextroamphetamine/Amphetamine 20 mg PO DAILY 01/17/21 01/17/21 History [Adderall] Divalproex ER [Depakote ER] 1,000 mg PO HS 01/17/21 01/17/21 History Divalproex ER [Depakote ER] 250 mg PO HS 01/17/21 01/17/21 History Prazosin HCl 2 mg PO HS 01/17/21 01/17/21 History guanFACINE HCL [Intuniv] 1 mg PO DAILY 01/17/21 01/17/21 History traZODone HCL [Desyrel] 50 mg PO HS 01/17/21 01/17/21 History Ibuprofen [Motrin] 800 mg PO Q6HR #30 tab 04/30/22 Rx Cephalexin [Keflex] 500 mg PO Q6HR 5 Days #20 cap 10/23/22 Rx Allergies Allergy/AdvReac Type Severity Reaction Status Date / Time codeine Allergy Rash/Hives Verified 10/23/22 17:00 Physical Exam BP is 164/79, pulse is 78, respirations 12, temperature is 97.9, pulse ox is 99% on room air, weight is 219, height is 6 feet and 1 inch. The size of the neck is 15 inches. The patient has an Guymon score of 6. BMI 27.5 The patient appeared well nourished and normally developed. Vital signs as documented. Head exam is unremarkable. No scleral icterus or corneal arcus noted. Neck is without jugular venous distension, thyromegaly, or carotid bruits. Carotid upstrokes are brisk bilaterally. Lungs are clear to auscultation and percussion. Cardiac exam reveals the PMI to be normally sized and situated. Rhythm is regular. First and second heart sounds normal. No murmurs, rubs or gallops. Abdominal exam reveals normal bowel sounds, no masses, no organomegaly and no aortic enlargement. Extremities are nonedematous and both femoral and pedal pulses are normal.Examination of the skin revealed no evidence of significant rashes, suspicious appearing nevi or other concerning lesions.Neurologically, the patient is awake and alert and the patient does not have any focal neurological deficit. Cranial nerves are essentially intact. Assessment and Plan Plan: Chronic fatigue/limited sleepiness, Guymon score of 6 History of snoring History of ADHD History of chronic anxiety/depression/bipolar disorder History of comorbid insomnia treated with trazodone in the past. Currently off treatment. Bronchial asthma which is currently inactive and stable Atopic dermatitis Chronic back pain Plan Low clinical suspicion for obstructive sleep apnea Will proceed with a screening polysomnogram to evaluate the patient's symptom Rory sleep quality and look for any significant sleep breathing disorder. Patient is currently taking no treatment in terms of medication Mental health is adequate for now We'll continue antiemetic the sleep hygiene measures Maintain regular sleep schedule We'll follow-up on this patient following his screening polysomnography Sleep Note - Sleep Note Sleep Note: Temperature: Pulse Rate: Respiratory Rate: Blood Pressure: SpO2: Height: Weight: BMI: Neck Circumference:
== END ==
LOC: 3 N SLEEP 13:40
PROVIDERS: ATTEND Internal Medicine Critical Care Medicine
DX: R06.83 Snoring (principal); R53.82 Chronic fatigue, unspecified; F90.9 Attention-deficit hyperactivity disorder, unspecified type; F41.9 Anxiety disorder, unspecified; F31.9 Bipolar disorder, unspecified; G47.00 Insomnia, unspecified; J45.909 Unspecified asthma, uncomplicated; L20.9 Atopic dermatitis, unspecified; G89.29 Other chronic pain; F17.200 Nicotine dependence, unspecified, uncomplicated; Z88.5 Allergy status to narcotic agent
CPT/HCPCS: 99211

== ENCOUNTER 2024-08-24 13:43 | Emergency (ER) | payer OTHER ==
--- NOTE | 2024-08-24 14:01 | ED ---
Upper Extremity HPI - General Stated Complaint: L arm lac Time Seen by Provider: 08/24/24 13:52 Source: patient Mode of arrival: ambulatory Limitations: no limitations - History of Present Illness Initial Comments: This is a 34-year-old male who presents with left forearm and hand injury/pain (07/12) x30 minutes ago. Patient states he tripped at home attempted to steady himself with his left hand, going through a glass pane and causing the glass to break. Patient states his left forearm was "peeled like a banana". Patient denies any other injuries and is up-to-date with tetanus vaccination. Complaint: Injury to:: left, forearm, hand Onset/Timin -: minutes(s) Other Extremity Injury: Hand: Left, Forearm: Left Other Injuries: none Place: home Severity scale (1-10): 10 Improves With: immobilization Worsens With: movement of extremity Context: laceration Associated Symptoms: weakness, numbness - Related Data Home Medications Medication Instructions Recorded Confirmed Dextroamphetamine/Amphetamine 20 mg PO DAILY 01/17/21 01/17/21 [Adderall] Divalproex ER [Depakote ER] 1,000 mg PO HS 01/17/21 01/17/21 Divalproex ER [Depakote ER] 250 mg PO HS 01/17/21 01/17/21 Prazosin HCl 2 mg PO HS 01/17/21 01/17/21 guanFACINE HCL [Intuniv] 1 mg PO DAILY 01/17/21 01/17/21 traZODone HCL [Desyrel] 50 mg PO HS 01/17/21 01/17/21 Previous Rx's Medication Instructions Recorded Ibuprofen [Motrin] 800 mg PO Q6HR #30 tab 04/30/22 Cephalexin [Keflex] 500 mg PO Q6HR 5 Days #20 cap 10/23/22 Allergies Allergy/AdvReac Type Severity Reaction Status Date / Time codeine Allergy Rash/Hives Verified 08/24/24 14:21 Review of Systems ROS Statement: Those systems with pertinent positive or pertinent negative responses have been documented in the HPI. ROS Other: All systems not noted in ROS Statement are negative. Past Medical History Past Medical History: No Reported History Additional Past Medical History / Comment(s): back pain, depression, shoulder seperation History of Any Multi-Drug Resistant Organisms: None Reported Past Surgical History: Tonsillectomy Additional Past Surgical History / Comment(s): wisdom teeth extraction Past Psychological History: ADD/ADHD, Anxiety, Bipolar, Depression Smoking Status: Former smoker Past Alcohol Use History: None Reported Past Drug Use History: None Reported, Marijuana General Exam - General Exam Comments Initial Comments: Visual Physical Exam Vital signs reviewed General: Well-appearing, nontoxic, no acute distress. Head: Normocephalic, atraumatic Eyes: PERRLA, EOMI ENT: Airway patent Chest: Nonlabored breathing Skin: No visual rash, normal skin tone patient's left forearm and hand wrapped in T-shirts with no active bleeding through shirts noted Neuro: Alert and oriented 3 Musculoskeletal: No gross abnormalities General appearance: alert, in no apparent distress Head exam: Present: atraumatic, normocephalic, normal inspection Eye exam: Present: normal appearance, PERRL, EOMI. Absent: scleral icterus, conjunctival injection, periorbital swelling ENT exam: Present: normal exam, mucous membranes moist Neck exam: Present: normal inspection. Absent: tenderness, meningismus, lymphadenopathy Respiratory exam: Present: normal lung sounds bilaterally. Absent: respiratory distress, wheezes, rales, rhonchi, stridor Cardiovascular Exam: Present: regular rate, normal rhythm, normal heart sounds. Absent: systolic murmur, diastolic murmur, rubs, gallop, clicks GI/Abdominal exam: Present: soft, normal bowel sounds. Absent: distended, tende rness, guarding, rebound, rigid Extremities exam: Present: tenderness (Ulnar aspect of mid left forearm is nearly completely degloved with mass of flesh/muscle exposed. Capillary/slow venous bleeding noted.), normal capillary refill, other (Left hand 3rd through 5th digits have diminished sensation especially ring finger. Weakness with finger abduction. Left radial pulse +2 and capillary refill less than 2 seconds.). Absent: pedal edema, joint swelling, calf tenderness Back exam: Present: normal inspection Neurological exam: Present: alert, oriented X3, CN II-XII intact Psychiatric exam: Present: normal affect, normal mood Skin exam: Present: warm, dry, intact, normal color, other (1.5 cm laceration noted on palmar aspect of left ring finger with no ongoing bleeding). Absent: rash Course Vital Signs 08/24/24 08/24/24 14:21 16:24 Temperature 97.8 F 97.8 F Pulse Rate 95 98 Respiratory 16 17 Rate Blood Pressure 135/83 117/82 O2 Sat by Pulse 97 100 Oximetry Medical Decision Making - Medical Decision Making Was pt. sent in by a medical professional or institution (, [facility], HOSPICE REGISTERED NURSE, urgent care, hospital, or fdc...) When possible be specific @ -No Did you speak to anyone other than the patient for history (EMS, parent, family, police, friend...)? What history was obtained from this source @ -No Did you review nursing and triage notes (agree or disagree)? Why? @ -I reviewed and agree with nursing and triage notes Were old charts reviewed (outside hosp., previous admission, EMS record, old EKG, old radiological studies, urgent care reports/EKG's, fdc records)? Report findings @ -No old charts were reviewed Differential Diagnosis (chest pain, altered mental status, abdominal pain women, abdominal pain men, vaginal bleeding, weakness, fever, dyspnea, syncope, headache, dizziness, GI bleed, back pain, seizure, CVA, palpatations, mental health, musculoskeletal)? @ -Soft tissue injury/laceration, radial ulnar fracture, wrist fracture, hand fracture, dislocation, laceration tendon, laceration of extremity/ulnar nerves, this is not an exhaustive list EKG interpreted by me (3pts min.). @ -Not done X-rays interpreted by me (1pt min.). @ -X-ray of left forearm and hand revealed no retained foreign bodies, fracture or dislocation CT interpreted by me (1pt min.). @ -None done U/S interpreted by me (1pt. min.). @ -None done What testing was considered but not performed or refused? (CT, X-rays, U/S, labs)? Why? @ -None What meds were considered but not given or refused? Why? @ -None Did you discuss the management of the patient with other professionals (professionals i.e. [facility] Angel, HOSPICE REGISTERED NURSE, lab, RT, psych nurse, social security assessor, knowledge management consultant, teacher, botanical technical officer, case assistant)? Give summary @ -Initially spoke to Dr. Goodman magana who advised patient he requires a hand surgeon. Contacted surgical physician at [facility] who advised hand surgeon as well and to contact either [facility] or [facility]. Automation Test Engineer called [facility] was unable to provide for services. Spoke to Dr. Gallardo of [facility] who approved ER to ER transfer to [facility] for ongoing care so long as patient remains hemodynamically stable during transport. Was smoking cessation discussed for >3mins.? @ -No Was critical care preformed (if so, how long)? @ -No Were there social determinants of health that impacted care today? How? (Homelessness, low income, unemployed, alcoholism, drug addiction, transportation, low edu. Level, literacy, decrease access to med. care, [facility], rehab)? @ -Childcare. Patient was forced to leave prior to ER to ER transfer in order to filler picker his special needs daughter to avoid loss of custody. Was there de-escalation of care discussed even if they declined (Discuss DNR or withdrawal of care, Hospice)? DNR status @ -No What co-morbidities impacted this encounter? (DM, HTN, Smoking, COPD, CAD, Cancer, CVA, ARF, Chemo, Hep., AIDS, mental health diagnosis, sleep apnea, morbid obesity)? @ -None Was patient admitted / discharged? Hospital course, mention meds given and route, prescriptions, significant lab abnormalities, going to OR and other pertinent info. @ -Patient left AMA. Left forearm and arm x-ray revealed no retained glass fragments, fracture or dislocation. Following initial evaluation pressure dress ing created with abdominal pad, Kerlix gauze and 2 Guicho wraps adhered tightly to prevent ongoing venous bleeding. Contacted in-house orthopedic surgeon and ultimately the [facility] hand surgeon, Dr. Gallardo, who agreed to ER to ER transfer. Patient states it is critical that he is able to filler picker his special needs daughter prior to transfer. Patient agrees to sign AMA and states that he will return for the ER to ER transfer with his arm wrapped in pressure dressing. Advised to return to ER/call EMS immediately if experiencing uncontrolled bleeding, dizziness, altered mental status, altered LOC. Undiagnosed new problem with uncertain prognosis? @ -Uncertain of regaining of full sensorimotor function of left hand Drug Therapy requiring intensive monitoring for toxicity (Heparin, Nitro, In sulin, Cardizem)? @ -No Were any procedures done? @ -No Diagnosis/symptom? @ -Severe laceration/injury of left forearm with sensorimotor deficits Acute, or Chronic, or Acute on Chronic? @ -Acute Uncomplicated (without systemic symptoms) or Complicated (systemic symptoms)? @ -Complicated Side effects of treatment? @ -No Exacerbation, Progression, or Severe Exacerbation? @ -No Poses a threat to life or bodily function? How? (Chest pain, [place], [place], pneumonia, PE, COPD, DKA, ARF, appy, cholecystitis, CVA, Diverticulitis, Homicidal, Suicidal, threat to staff... and all critical care pts) @ -Potential for exsanguination and loss of sensorimotor function of left hand - Lab Data Result diagrams: 08/24/24 14:54 08/24/24 17:51 Lab Results 08/24/24 08/24/24 08/24/24 Range/Units 14:54 16:39 17:51 WBC 12.8 H (3.8-10.6) k/uL RBC 5.38 (4.30-5.90) m/uL Hgb 15.7 (13.0-17.5) gm/dL Hct 46.1 (39.0-53.0) % MCV 85.7 (80.0-100.0) fL MCH 29.2 (25.0-35.0) pg MCHC 34.1 (31.0-37.0) g/dL RDW 11.7 (11.5-15.5) % Plt Count 287 (150-450) k/uL MPV 7.6 Neutrophils % 81 % Lymphocytes % 13 % Monocytes % 5 % Eosinophils % 1 % Basophils % 0 % Neutrophils # 10.4 H (1.3-7.7) k/uL Lymphocytes # 1.6 (1.0-4.8) k/uL Monocytes # 0.6 (0-1.0) k/uL Eosinophils # 0.1 (0-0.7) k/uL Basophils # 0.0 (0-0.2) k/uL PT 10.7 (10.0-12.5) sec INR 1.0 (<1.2) APTT 28.5 (22.0-30.0) sec Sodium 131 L (137-145) mmol/L Potassium 4.5 (3.5-5.1) mmol/L Chloride 97 L (98-107) mmol/L Carbon Dioxide 32 H (22-30) mmol/L Anion Gap 2 mmol/L BUN 9 (9-20) mg/dL Creatinine 0.69 (0.66-1.25) mg/dL Est GFR (CKD-EPI)AfAm >90 (>60 ml/min/1.73 sqM) Est GFR (CKD-EPI)NonAf >90 (>60 ml/min/1.73 sqM) Glucose 95 (74-99) mg/dL Calcium 9.3 (8.4-10.2) mg/dL Total Bilirubin 0.8 (0.2-1.3) mg/dL AST 36 (17-59) U/L ALT 22 (4-49) U/L Alkaline Phosphatase 85 (38-126) U/L Total Protein 7.5 (6.3-8.2) g/dL Albumin 4.8 (3.5-5.0) g/dL Disposition Clinical Impression: Laceration, Ulnar nerve damage Disposition: LEFT AGAINST MEDICAL ADVICE Condition: Fair Instructions (If sedation given, give patient instructions): Laceration (DC) Additional Instructions: Return to ER immediately by EMS or POV if experiencing uncontrolled bleeding, dizziness, altered mental status, altered LOC. Return to ER as soon as possible for ER to ER transfer to [facility] for further care. Is patient prescribed a controlled substance at d/c from ED?: No Referrals: Richard Davis DO [Primary Care Provider] - 1-2 days Time of Disposition: 17:59
[2024-08-24 14:26] VITALS: TEMP 97.8
--- NOTE | 2024-08-24 15:04 | XR ---
EXAMINATION TYPE: XR forearm LT, XR hand complete LT DATE OF EXAM: 08/24/2024 2:56 PM COMPARISON: None CLINICAL INDICATION: Male, 34 years old with history of Left hand and forearm through glass pane; [facility] TECHNIQUE: XR forearm LT, XR hand complete LT; 2 views of the forearm and 3 views of the hand. FINDINGS: Soft tissue injury involving the distal aspect of the left upper extremity. No acute osseou s pathology, soft tissue swelling or joint dislocations are seen. No evidence of radiopaque foreign b misti. IMPRESSION: Soft tissue laceration without evidence of radiopaque foreign body or fracture. [facility], , 08/24/2024 3:02 PM
[2024-08-24 16:27] VITALS: BP 117/82; PULSE 98; RESP 17
[2024-08-24] MEDS: KETOROLAC 15 MG/ML 1 ML VIAL IVP STA ×2 (16:35→16:54)
[2024-08-24] MEDS: HYDROmorphone 0.5 MG/0.5 ML SYRINGE IVP STA (16:52)
[2024-08-24 17:12] LABS: Basophils % (A) 0 %; Eosinophils # (A) 0.1 k/uL (0-0.7); Eosinophils % (A) 1 %; HCT 46.1 % (39.0-53.0); HGB 15.7 gm/dL (13.0-17.5); Lymphocytes # (A) 1.6 k/uL (1.0-4.8); Lymphocytes % (A) 13 %; MCH 29.2 pg (25.0-35.0); MCHC 34.1 g/dL (31.0-37.0); MCV 85.7 fL (80.0-100.0); Mean Platelet Volume 7.6; Monocytes # (A) 0.6 k/uL (0-1.0); Monocytes % (A) 5 %; Neutrophils # (A) 10.4 k/uL (1.3-7.7); Neutrophils % (A) 81 %; Platelet Count 287 k/uL (150-450); RBC 5.38 m/uL (4.30-5.90); RDW 11.7 % (11.5-15.5); WBC 12.8 k/uL (3.8-10.6)
[2024-08-24 17:23] LABS: Partial Thromboplastin Time 28.5 sec (22.0-30.0); Prothrombin Time 10.7 sec (10.0-12.5)
[2024-08-24 18:31] LABS: ALT 22 U/L (4-49); African American GFR (CKD) >90 (>60 ml/min/1.73 sqM); Albumin 4.8 g/dL (3.5-5.0); Anion Gap 2 mmol/L; Blood Urea Nitrogen 9 mg/dL (9-20); Calcium 9.3 mg/dL (8.4-10.2); Carbon Dioxide 32 mmol/L (22-30); Chloride 97 mmol/L (98-107); Glucose 95 mg/dL (74-99); Non-African American GFR(CKD) >90 (>60 ml/min/1.73 sqM); Sodium 131 mmol/L (137-145); Total Bilirubin 0.8 mg/dL (0.2-1.3); Total Protein 7.5 g/dL (6.3-8.2)
[2024-08-24 18:34] LABS: AST 36 U/L (17-59); Alkaline Phosphatase 85 U/L (38-126); Potassium 4.5 mmol/L (3.5-5.1)
== END 2024-08-24 18:19 | disposition left against medical advice (07) ==
LOC: EC 13:43
DX: S51.812A Laceration without foreign body of left forearm, initial encounter (principal); G56.20 Lesion of ulnar nerve, unspecified upper limb; Z87.891 Personal history of nicotine dependence; Z88.5 Allergy status to narcotic agent; Z53.29 Procedure and treatment not carried out because of patient's decision for other reasons; W25.XXXA Contact with sharp glass, initial encounter; Y92.019 Unspecified place in single-family (private) house as the place of occurrence of the external cause
CPT/HCPCS: 36415; 80053; 85025; 85610; 85730; 73090; 73130; 99283; 96374; 96375; J1885; J1171

== ENCOUNTER 2024-08-24 19:24 | Emergency (ER) | payer OTHER ==
[2024-08-24 19:29] VITALS: BP 123/84; PULSE 115; RESP 18; TEMP 98.4
--- NOTE | 2024-08-24 19:51 | ED ---
General Adult HPI - General Chief complaint: Wound/Laceration Stated complaint: L arm laceration Time Seen by Provider: 08/24/24 19:34 Source: patient, RN notes reviewed, old records reviewed Mode of arrival: ambulatory Limitations: no limitations - History of Present Illness Initial comments: This is a 34-year-old male who presents to the emergency department with a laceration to his left forearm. Patient was seen earlier today after he fell through a glass pain. Patient had some decreased strength in his fingers as well as decree sensation in fingers 3 4 and 5 and it was determined after talking to both of our orthopedic group that they wanted the patient transferred to a hand surgeon. [facility] was contacted and they agreed to accept the patient. Patient had to leave AMA to go home and cloth picker his daughter and stated he would be back and he is now back he states that has not been bleeding through the bandage but he still wants to be taken to [facility]. - Related Data Home Medications Medication Instructions Recorded Confirmed Dextroamphetamine/Amphetamine 20 mg PO DAILY 01/17/21 01/17/21 [Adderall] Divalproex ER [Depakote ER] 1,000 mg PO HS 01/17/21 01/17/21 Divalproex ER [Depakote ER] 250 mg PO HS 01/17/21 01/17/21 Prazosin HCl 2 mg PO HS 01/17/21 01/17/21 guanFACINE HCL [Intuniv] 1 mg PO DAILY 01/17/21 01/17/21 traZODone HCL [Desyrel] 50 mg PO HS 01/17/21 01/17/21 Previous Rx's Medication Instructions Recorded Ibuprofen [Motrin] 800 mg PO Q6HR #30 tab 04/30/22 Cephalexin [Keflex] 500 mg PO Q6HR 5 Days #20 cap 10/23/22 Allergies Allergy/AdvReac Type Severity Reaction Status Date / Time codeine Allergy Rash/Hives Verified 08/24/24 19:29 Review of Systems ROS Statement: Those systems with pertinent positive or pertinent negative responses have been documented in the HPI. ROS Other: All systems not noted in ROS Statement are negative. Past Medical History Past Medical History: No Reported History Additional Past Medical History / Comment(s): back pain, depression, shoulder seperation History of Any Multi-Drug Resistant Organisms: None Reported Past Surgical History: Tonsillectomy Additional Past Surgical History / Comment(s): wisdom teeth extraction Past Psychological History: ADD/ADHD, Anxiety, Bipolar, Depression Smoking Status: Former smoker Past Alcohol Use History: None Reported Past Drug Use History: None Reported, Marijuana General Exam - General Exam Comments Initial Comments: GENERAL Patient is well-developed and well-nourished. Patient is in mild distress. EYES Patient's pupils are equal and round. Extraocular motion is intact SKIN Unremarkable NEURO The patient is alert and oriented A&Ox3 PYSCH Patient has normal interpersonal interactions. MUSCULOSKELETAL Patient has a 15 x 6 cm laceration. Decreased sensation to third fourth and fifth finger and particularly the ring finger was the worst. Patient also had decreased strength in abduction of his fingers. Limitations: no limitations Course Vital Signs 08/24/24 19:26 Temperature 98.4 F Pulse Rate 115 H Respiratory 18 Rate Blood Pressure 123/84 O2 Sat by Pulse 99 Oximetry Medical Decision Making - Medical Decision Making Was pt. sent in by a medical professional or institution (, PA, STARTER MECHANIC, urgent care, hospital, or fpc...) When possible be specific @ -No Did you speak to anyone other than the patient for history (EMS, parent, family, police, friend...)? What history was obtained from this source @ -No Did you review nursing and triage notes (agree or disagree)? Why? @ -I reviewed and agree with nursing and triage notes Were old charts reviewed (outside hosp., previous admission, EMS record, old EKG, old radiological studies, urgent care reports/EKG's, fpc records)? Report findings @ -No old charts were reviewed Differential Diagnosis? @ -Laceration, severing of tendons, severing of nerve ulnar, this is not an all-inclusive list EKG interpreted by me (3pts min.). @ -As above X-rays interpreted by me (1pt min.). @ -None done CT interpreted by me (1pt min.). @ -None done U/S interpreted by me (1pt. min.). @ -None done What testing was considered but not performed or refused? (CT, X-rays, U/S, labs)? Why? @ -None What meds were considered but not given or refused? Why? @ -None Did you discuss the management of the patient with other professionals (professionals i.e. , PA, STARTER MECHANIC, lab, RT, psych nurse, social work manager, cloud automation tester, teacher, chief executive officer, disease case manager rn)? Give summary @ -Them was already contacted and the patient was transferred by ambulance Was smoking cessation discussed for >3mins.? @ -No Was critical care preformed (if so, how long)? @ -No Were there social determinants of health that impacted care today? How? (Homelessness, low income, unemployed, alcoholism, drug addiction, transportation, low edu. Level, literacy, decrease access to med. care, [facility], rehab)? @ -No Was there de-escalation of care discussed even if they declined (Discuss DNR or withdrawal of care, Hospice)? DNR status @ -No What co-morbidities impacted this encounter? (DM, HTN, Smoking, COPD, CAD, Cancer, CVA, ARF, Chemo, Hep., AIDS, mental health diagnosis, sleep apnea, morbid obesity)? @ -None Was patient admitted / discharged? Hospital course, mention meds given and route, prescriptions, significant lab abnormalities, going to OR and other pertinent info. @ -Patient's wound was not bleeding through the bandage that was put on earlier. Patient was given Ancef in this visit he has a tetanus up-to-date. Patient be transferred to [facility] Undiagnosed new problem with uncertain prognosis? @ -No Drug Therapy requiring intensive monitoring for toxicity (Heparin, Nitro, Insulin, Cardizem)? @ -No Were any procedures done? @ -No Diagnosis/symptom? @ -Large laceration forearm Acute, or Chronic, or Acute on Chronic? @ -Acute Uncomplicated (without systemic symptoms) or Complicated (systemic symptoms)? @ -Complicate Side effects of treatment? @ -No Exacerbation, Progression, or Severe Exacerbation? @ -No Poses a threat to life or bodily function? How? (Chest pain, [place], [place], pneumonia, PE, COPD, DKA, ARF, appy, cholecystitis, CVA, Diverticulitis, Homicidal, Suicidal, threat to staff... and all critical care pts) @ -Yes if this does not get appropriately explored and fixed patient could lose function of his left hand Disposition Clinical Impression: Laceration of forearm, left, complicated Disposition: OTHER INSTITUTION NOT DEFINED Referrals: Richard Davis DO [Primary Care Provider] - 1-2 days Time of Disposition: 19:51 - Out of Hospital Transfer - Req. Specs Out of Hospital Transfer - Requested Specifics: Other Emergency Center ([facility])
[2024-08-24] MEDS: ceFAZolin 1,000 MG VIAL (IM USE) IM STA (19:52)
== END 2024-08-24 21:36 | disposition other institution (70) ==
LOC: EC 19:24
DX: S51.812A Laceration without foreign body of left forearm, initial encounter (principal); Z88.5 Allergy status to narcotic agent; Z87.891 Personal history of nicotine dependence; W19.XXXA Unspecified fall, initial encounter
CPT/HCPCS: 99284; 96372; J0690